=== PATIENT | male | born 1940 | race Caucasian/White ===

== ENCOUNTER 2018-03-28 01:01 | Observation (INO) | payer MEDICARE ==
[2018-03-28] VITALS (8 sets, daily range): BP systolic 97–136; BP diastolic 54–68; PULSE 52–68; RESP 16–18; TEMP 97.7–98.9; O2SAT 97–100
[~2018-03-28 01:01] MED LIST: ACET300T49 PO; APIX2.5T PO; AUGM500T7 PO; CARD180T PO; CHOL100025 CHEW; DIFFCHW PO; DIFL200T PO; DIGO0.25 PO; EFFE150C PO; FOLI1TAB4 PO; GABA300C5 PO; GLIP10TA6 PO; LEVO.05 PO; LORA-361 PO; MELA5 PO; METF500T PO; OMEP20TA93 PO; SPIRCAP INH
[2018-03-28] MEDS ORDERED: SODIUM CHLOR 0.9% 1000 ML INJ 1,000 ML IV ONE (01:09)
[2018-03-28] MEDS ORDERED: IODIXANOL 320 MG/ML 10 ML VIAL (for Rad CT) IVCONTRAST ONE (01:13)
[2018-03-28 01:19] LABS: AUTOMATED NEUTROPHIL # 5.6 TH/MM3 (1.8-7.7); BASOPHIL # 0.1 TH/MM3 (0-0.2); BASOPHIL % 0.8 % (0.0-2.0); EOSINOPHIL # 0.1 TH/MM3 (0-0.4); EOSINOPHIL % 1.2 % (0.0-4.0); HEMATOCRIT 39.5 % (39.0-51.0); HEMOGLOBIN 13.1 GM/DL (13.0-17.0); LYMPH % 41.2 % (9.0-44.0); LYMPHOCYTE # 4.7 TH/MM3 (1.0-4.8); MEAN CORPUSCULAR HEMOGLOBIN 31.4 PG (27.0-34.0); MEAN CORPUSCULAR HGB CONC 33.1 % (32.0-36.0); MONO % 7.1 % (0.0-8.0); MONOCYTE # 0.8 TH/MM3 (0-0.9); NEUT % 49.7 % (16.0-70.0); PLATELET COUNT 293 TH/MM3 (150-450); RED BLOOD COUNT 4.16 MIL/MM3 (4.50-5.90); RED CELL DISTRIBUTION WIDTH 14.3 % (11.6-17.2); WHITE BLOOD COUNT 11.3 TH/MM3 (4.0-11.0)
--- NOTE | 2018-03-28 01:28 | RADRPT ---
EXAM DATE: 03/28/2018 1:20 AM EDT AGE/SEX: 78 years / Male INDICATIONS: Stroke Alert. Left sided weakness with slurred speech. CLINICAL DATA: This is the patient's initial encounter. Patient reports that signs and symptoms have been present for 1 day and indicates a pain score of Nonresponsive. MEDICAL/SURGICAL HISTORY: Cardiovascular disease. Hypertension. Diabetes mellitus type II. COPD Renal stones Appendectomy. Craniotomy. RADIATION DOSE: 66.34 CTDI (mGy) COMPARISON: No prior exams available for comparison. Report was called by Dr. Mercado to Dr. Caceres at [phone].] TECHNIQUE: CT of the head without contrast. Using automated exposure control and adjustment of the mA and/or kV according to patient size, radiation dose was kept as low as reasonably achievable to ob tain optimal diagnostic quality images. FINDINGS: Cerebrum: The ventricles, sulci, and cisterns are diffusely prominent indicating diffuse atrophy. Ri ght frontal encephalomalacia noted. Right frontal subdural hygroma is noted with minimal mass effect on the right frontal lobe. No acute intracranial hemorrhage. No evidence of acute infarction or intra cranial mass lesion. Right-sided aneurysm clip is noted. Posterior Fossa: The cerebellum and brainstem are intact. The 4th ventricle is midline. The cerebe llopontine angle is unremarkable. Extracranial: The visualized portion of the orbits is intact. Skull: The calvaria is intact. No evidence of skull fracture. CONCLUSION: 1. No acute intracranial findings. 2. Right-sided [place] aneurysm clip. 3. Diffuse atrophy. 4. Right frontal lobe encephalomalacia. 5. Right-sided frontal subdural hygroma with minimal mass effect. Electronically signed by: Liam Mercado MD 03/28/2018 1:27 AM EDT
[2018-03-28 01:35] LABS: TROPONIN I LESS THAN 0.02 NG/ML (0.02-0.05)
--- NOTE | 2018-03-28 01:58 | RADRPT ---
EXAM DATE: 03/28/2018 1:42 AM EDT AGE/SEX: 78 years / Male INDICATIONS: Stroke alert; left side weakness and slurred speech. CLINICAL DATA: This is the patient's initial encounter. Patient reports that signs and symptoms have been present for 1 day and indicates a pain score of 0/10. MEDICAL/SURGICAL HISTORY: Non-responsive. Craniotomy. RADIATION DOSE: 10.29 CTDI (mGy) ; Combined studies COMPARISON: No prior exams available for comparison. TECHNIQUE: Volumetric scanning was performed using a multi-row detector CT scanner during bolus infu chelly of 75 ml Visipaque 320 (iodixanol) nonionic water-soluble contrast as a cumulative dose for mul tiple exams. The data was post processed with a variety of visualization algorithms including full volume maximum intensity projection, multi-planar sliding thin slab reformation, curved planar reform ation, and surface rendering techniques. Using automated exposure control and adjustment of the mA a nd/or kV according to patient size, radiation dose was kept as low as reasonably achievable to obtain optimal diagnostic quality images. FINDINGS: There is occlusion of the right internal carotid artery at its origin. Anterior to indicating artery is patent. The anterior cerebral arteries, middle cerebral arteries, posterior cerebral arteries are symmetric without evidence of occlusion or high-grade stenosis. Aneurysm clip is noted at the right s padmini of the anterior [place] of [place]. There is a small 3 mm fusiform aneurysm at the left MCA trifurc ation. CONCLUSION: 1. Age-indeterminate occlusion of the right ICA at its origin. 2. Filling of the anterior circulation on the right via collaterals. No evidence of high-grade intra cranial stenosis or occlusion. 3. 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 4. Right-sided anterior aneurysm clip. Electronically signed by: Liam Mercado MD 03/28/2018 1:51 AM EDT
[2018-03-28] MEDS ORDERED: ASPIRIN 300 MG SUPP RECTAL ONE (02:00)
--- NOTE | 2018-03-28 02:02 | PD ---
HPI Chief Complaint: Stroke Alert Time Seen by Provider: 01:09 Travel History International Travel<30 days: No Contact w/Intl Traveler<30days: No Traveled to known affect area: No History of Present Illness HPI Patient is a 78-year-old male with history of atrial fibrillation, CHF, dementia , COPD, hypothyroidism, diabetes, chronic pain, depression, emphysema, PE, UTI, aneurysms, TIA, neuropathy, CVA who presents to the emergency room from [facility] under a stroke alert. As per EVAC, patient was last seen normal around 12:05 AM tonight, reports that nursing went to check up on patient and around 12:15 AM, patient was unresponsive. When EMS arrived on scene, patient had slurring of speech. EVAC did call for a stroke alert initiated in the field. EVAC reports that patient did have improvement of speech on route to the ER. Blood sugar was 129. Patient is on Eliquis for his Atrial fibrillation PFSH Past Medical History Atrial Fibrillation: Yes Heart Rhythm Problems: Yes (A Fib) Cancer: No Cardiovascular Problems: Yes (A Fib) COPD: Yes Cerebrovascular Accident: No Diabetes: Yes Patient Takes Glucophage: Yes Diminished Hearing: Yes (VERY HARD OF HEARING) Endocrine: Yes Genitourinary: Yes (KIDNEY STONE, UTI) Hypertension: Yes Kidney Stones: Yes Musculoskeletal: Yes Neurologic: Yes (Aneurism) Psychiatric: No Reproductive: Yes (COGNITIVE COMMUNICATION DEFICIT) Respiratory: Yes Seizures: No Thyroid Disease: Yes Past Surgical History Abdominal Surgery: Yes Cardiac Surgery: No Neurologic Surgery: Yes Other Surgery: Yes Social History Alcohol Use: No Tobacco Use: No (Former smoker) Substance Use: No Allergies-Medications (Allergen,Severity, Reaction): Coded Allergies: hydromorphone (Unverified Allergy, Unknown, 03/28/18) *MDRO Multi-Drug Resistant Organism (Verified Adverse Reaction, Unknown, ) 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 Reported Meds & Prescriptions Reported Meds & Active Scripts Active Augmentin (Amoxicillin-Clavulanate) 500-125 mg Tab 500 Mg PO Q8H Diflucan (Fluconazole) 200 Mg Tab 400 Mg PO DAILY 14 Days Reported Metformin (Metformin HCl) 500 Mg Tab 2,000 Mg PO HS With meals Vitamin D3 (Cholecalciferol) 1,000 Unit Chew 1,000 Units CHEW TID Digoxin 0.25 Mg Tab 0.25 Mg PO DAILY Cardizem LA (Diltiazem ER 24 HR) 180 Mg Adele 180 Mg PO DAILY Glipizide 10 Mg Tab 10 Mg PO BIDAC Take 30 minutes before a meal Gabapentin 300 Mg Cap 300 Mg PO HS Omeprazole 20 Mg Tab 20 Mg PO DAILY Folate (Folic Acid) 1 Mg Tab 1 Mg PO DAILY Melatonin 5 Mg Tab 1 Tab PO HS Acetaminophen-Codeine 300-15 mg Tab 1-2 Tab PO Q8HR PRN Claritin (Loratadine) 10 Mg Tab 20 Mg PO DAILY Gabapentin 300 Mg Cap 600 Mg PO DAILY Diff-Stat (Probiotic Product) 1 Cap Cap 1 Cap PO TID Eliquis (Apixaban) 2.5 Mg Tab 2.5 Mg PO BID Synthroid (Levothyroxine Sodium) 50 Mcg Tab 50 Mcg PO DAILY Spiriva Handihaler (Tiotropium Inh) 18 Mcg Cap 1 Cap INH DAILY 1 capsule = 18 mcg Effexor XR 24 HR (Venlafaxine HCl) 150 Mg Cap 150 Mg PO BID Review of Systems General / Constitutional: No: Fever Eyes: No: Visual changes HENT: No: Headaches Cardiovascular: No: Chest Pain or Discomfort Respiratory: No: Shortness of Breath Gastrointestinal: No: Abdominal Pain Genitourinary: No: Dysuria Musculoskeletal: No: Pain Skin: No Rash Neurologic: Positive: Slurred Speech, No: Weakness Psychiatric: No: Depression Endocrine: No: Polydipsia Hematologic/Lymphatic: No: Easy Bruising Physical Exam Narrative GENERAL: moderate distress SKIN: Focused skin assessment warm/dry. HEAD: Atraumatic. Normocephalic. EYES: Pupils equal and round. No scleral icterus. No injection or drainage. ENT: No nasal bleeding or discharge. Mucous membranes pink and moist. NECK: Trachea midline. No JVD. CARDIOVASCULAR: Regular rate and rhythm. No murmur appreciated. RESPIRATORY: No accessory muscle use. Clear to auscultation. Breath sounds equal bilaterally. GASTROINTESTINAL: Abdomen soft, non-tender, nondistended. Hepatic and splenic margins not palpable. MUSCULOSKELETAL: No obvious deformities. No clubbing. No cyanosis. No edema. NEUROLOGICAL: Awake and alert. No obvious cranial nerve deficits. Motor grossly within normal limits. Patient with slurring of speech, NIH scale 1. Data Data Last Documented VS Vital Signs Date Time Temp Pulse Resp B/P (MAP) Pulse Ox O2 Delivery O2 Flow Rate FiO2 6/12/18 02:07 67 18 116/56 (76) 97 Room Air 03/28/18 01:01 98.0 Orders Orders Diet Npo (03/28/18 Breakfast) Activity Bed Rest (03/28/18 ) Electrocardiogram (03/28/18 ) I-Stat Profile (03/28/18 01:09) Prothrombin Time / Inr (Pt) (03/28/18 01:09) Act Partial Throm Time (Ptt) (03/28/18 01:09) Complete Blood Count With Diff (03/28/18 01:09) Fibrinogen (03/28/18 01:09) Creatine Kinase (Cpk) (03/28/18 01:09) Troponin I (03/28/18 01:09) Ua Includes Microscopic (03/28/18 01:09) Drug Screen, Random Urine (03/28/18 01:09) Type And Screen (03/28/18 01:09) Ct Brain W/O Iv Contrast(Rout) (03/28/18 ) Chest, Single Ap (03/28/18 ) Cta Brain W Iv Contrast W 3d (03/28/18 01:09) Cta Neck W Iv Contrast W 3d (03/28/18 01:09) Blood Glucose (03/28/18 01:09) Ecg Monitoring (03/28/18 01:09) Neuro Checks Q2HX12,Q4H (03/28/18 01:09) Nursing Bedside Swallow Assess .ONCE (03/28/18 01:09) Iv Access Insert/Monitor (03/28/18 01:09) NPO (03/28/18 01:09) Oximetry (03/28/18 01:09) Sodium Chlor 0.9% 1000 Ml Inj (Ns 1000 M (03/28/18 01:09) Aspirin Supp (Aspirin Supp) (03/28/18 02:00) Admit Order (Ed Use Only) (03/28/18 02:19) Labs Laboratory Tests Test 03/28/18 01:01 White Blood Count 11.3 TH/MM3 Red Blood Count 4.16 MIL/MM3 Hemoglobin 13.1 GM/DL Bedside Hemoglobin 12.9 G/DL Hematocrit 39.5 % Bedside Hematocrit 38.0 % Mean Corpuscular Volume 95.0 FL Mean Corpuscular Hemoglobin 31.4 PG Mean Corpuscular Hemoglobin Concent 33.1 % Red Cell Distribution Width 14.3 % Platelet Count 293 TH/MM3 Mean Platelet Volume 8.0 FL Neutrophils (%) (Auto) 49.7 % Lymphocytes (%) (Auto) 41.2 % Monocytes (%) (Auto) 7.1 % Eosinophils (%) (Auto) 1.2 % Basophils (%) (Auto) 0.8 % Neutrophils # (Auto) 5.6 TH/MM3 Lymphocytes # (Auto) 4.7 TH/MM3 Monocytes # (Auto) 0.8 TH/MM3 Eosinophils # (Auto) 0.1 TH/MM3 Basophils # (Auto) 0.1 TH/MM3 CBC Comment DIFF FINAL Differential Comment Prothrombin Time 10.0 SEC Prothromb Time International Ratio 1.0 RATIO Activated Partial Thromboplast Time 25.2 SEC Fibrinogen 432 mg/dL Bedside Sodium 135 MMOL/L Bedside Potassium 3.8 MMOL/L Bedside Chloride 95 MMOL/L Bedside Blood Urea Nitrogen 13 MG/DL Bedside Creatinine 1.2 MG/DL Bedside Glucose 129 MG/DL Total Creatine Kinase 18 U/L Troponin I LESS THAN 0.02 NG/ML [facility] Medical Screen Exam Complete: Yes Emergency Medical Condition: Yes Medical Record Reviewed: Yes EKG Prior to Arrival: Yes Differential Diagnosis CVA, TIA, intracranial hemorrhage Narrative Course During the course of the patients emergency department visit, the patients history, examination, and differential diagnosis were reviewed with the patient. The patient was placed on a design assistant with oximetry and frequent blood pressure monitoring. The patient had an IV access obtained and blood work sent for analysis. BS 129 Stroke alert was called overhead. NIH scale was 1 given his speech deficits. The patients laboratory studies were reviewed and remarkable for Laboratory Tests Test 03/28/18 01:01 White Blood Count 11.3 TH/MM3 (4.0-11.0) Red Blood Count 4.16 MIL/MM3 (4.50-5.90) Hemoglobin 13.1 GM/DL (13.0-17.0) Bedside Hemoglobin 12.9 G/DL (13.0-17.0) Hematocrit 39.5 % (39.0-51.0) Bedside Hematocrit 38.0 % (39.0-51.0) Mean Corpuscular Volume 95.0 FL (80.0-100.0) Mean Corpuscular Hemoglobin 31.4 PG (27.0-34.0) Mean Corpuscular Hemoglobin Concent 33.1 % (32.0-36.0) Red Cell Distribution Width 14.3 % (11.6-17.2) Platelet Count 293 TH/MM3 (150-450) Mean Platelet Volume 8.0 FL (7.0-11.0) Neutrophils (%) (Auto) 49.7 % (16.0-70.0) Lymphocytes (%) (Auto) 41.2 % (9.0-44.0) Monocytes (%) (Auto) 7.1 % (0.0-8.0) Eosinophils (%) (Auto) 1.2 % (0.0-4.0) Basophils (%) (Auto) 0.8 % (0.0-2.0) Neutrophils # (Auto) 5.6 TH/MM3 (1.8-7.7) Lymphocytes # (Auto) 4.7 TH/MM3 (1.0-4.8) Monocytes # (Auto) 0.8 TH/MM3 (0-0.9) Eosinophils # (Auto) 0.1 TH/MM3 (0-0.4) Basophils # (Auto) 0.1 TH/MM3 (0-0.2) CBC Comment DIFF FINAL Differential Comment Prothrombin Time 10.0 SEC (9.8-11.6) Prothromb Time International Ratio 1.0 RATIO Activated Partial Thromboplast Time 25.2 SEC (24.3-30.1) Fibrinogen 432 mg/dL (227-377) Bedside Sodium 135 MMOL/L (137-144) Bedside Potassium 3.8 MMOL/L (3.6-5.0) Bedside Chloride 95 MMOL/L (102-111) Bedside Blood Urea Nitrogen 13 MG/DL (5-21) Bedside Creatinine 1.2 MG/DL (0.6-1.3) Bedside Glucose 129 MG/DL (68-110) Total Creatine Kinase 18 U/L (39-308) Troponin I LESS THAN 0.02 NG/ML Radiology studies were reviewed and remarkable for Last Impressions Head CTA 03/28/18 0108 Signed Impressions: CONCLUSION: 1. Age-indeterminate occlusion of the right ICA at its origin. 2. Filling of the anterior circulation on the right via collaterals. No eviden ce of high-grade intracranial stenosis or occlusion. 3. 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 4. Right-sided anterior aneurysm clip. Head CT 03/28/18 0000 Signed Impressions: CONCLUSION: 1. No acute intracranial findings. 2. Right-sided [place] of [place] aneurysm clip. 3. Diffuse atrophy. 4. Right frontal lobe encephalomalacia. 5. Right-sided frontal subdural hygroma with minimal mass effect. Chest X-Ray 03/28/18 0000 Signed Impressions: CONCLUSION: Mild patchy left lung base opacity indicating atelectasis versus mild consolida tion. Patient with no intracranial hemorrhage, case reviewed Dr. Caceres, patient is not a candidate for TPA given the fact that he is on Eliquis. Patient was reevaluated with his at bedside, patient with return of speech , patient currently back at baseline, NIH scale is 0 at this time. Discussed with patient and that he most likely suffered a TIA. Critical Care Narrative Aggregate critical care time was 30 minutes. Time to perform other separately billable procedures was not included in the critical care time. My time did not include minutes spent treating any other patients simultaneously or on activities that did not directly contribute to the patient's treatment. The services I provided to this patient were to treat and/or prevent clinically significant deterioration that could result in: , decompensation, deterioration I provided critical care services requiring my management, as noted below: Chart data review, documentation time, medication orders and management, vital sign assessments/reviewing monitor data, ordering and reviewing lab tests, ordering and interpreting/reviewing x-rays and diagnostic studies, care of the patient and discussion of the patient with the admitting physicians. Stroke Alert NIHSS NIH Stroke Scale Result: 1 NIHSS Time Completed: 01:00 Physician Communication Physician Communication Case reviewed with Dr. Garcia who accepts pt to service Diagnosis Diagnosis: Primary Impression: TIA (transient ischemic attack) Qualified Codes: G45.9 - Transient cerebral ischemic attack, unspecified Admitting Physician Requests: Jacki Cabello DO Mar 28, 2018 02:02
--- NOTE | 2018-03-28 02:02 | RADRPT ---
EXAM DATE: 03/28/2018 1:54 AM EDT AGE/SEX: 78 years / Male INDICATIONS: Stroke alert. CLINICAL DATA: This is the patient's initial encounter. Patient reports that signs and symptoms have been present for 1 day and indicates a pain score of 0/10. MEDICAL/SURGICAL HISTORY: None. None. COMPARISON: [facility], CHEST SINGLE AP, 08/22/2016. . FINDINGS: Single AP view of the chest. Lung volumes are low. Mild cardiac silhouette enlargement. Lungs are clarence ar. Mild patchy opacity left lung base. No evidence of pleural effusion or pneumothorax. CONCLUSION: Mild patchy left lung base opacity indicating atelectasis versus mild consolidation. Electronically signed by: Liam Mercado MD 03/28/2018 2:01 AM EDT
--- NOTE | 2018-03-28 02:23 | RADRPT ---
EXAM DATE: 03/28/2018 2:02 AM EDT AGE/SEX: 78 years / Male INDICATIONS: Stroke alert; left side weakness and slurred speech. CLINICAL DATA: This is the patient's initial encounter. Patient reports that signs and symptoms have been present for 1 day and indicates a pain score of 0/10. MEDICAL/SURGICAL HISTORY: Non-responsive. Craniotomy. RADIATION DOSE: 10.97 CTDI (mGy) COMPARISON: No prior exams available for comparison. TECHNIQUE: Volumetric scanning was performed using a multirow detector CT scanner during bolus infus ion of 75 ml Visipaque 320 (iodixanol) nonionic water-soluble contrast as a cumulative dose for mult iple exams. The data was postprocessed with a variety of visualization algorithms including full-vo lume maximum intensity projection, multiplanar sliding thin-slab reformation, curved-planar reformati on, and surface-rendering techniques. Using automated exposure control and adjustment of the mA and/ or kV according to patient size, radiation dose was kept as low as reasonably achievable to obtain op timal diagnostic quality images. Elevated flow velocities and ICA/CCA ratios have been found to correlate with increased degrees of ve ssel stenosis, calculated as percentage of diameter relative to a normal segment of distal ICA/CCA. FINDINGS: There is occlusion of the right internal carotid artery at its origin. This finding is age-indetermin ate. External carotid arteries patent on the right. Three-vessel origins at the aortic arch. There is plaque at the origin of the left common carotid art abiodun with moderate grade stenosis of 50-60%. Mild calcified and noncalcified plaque of the proximal left internal carotid artery. No evidence of s ignificant stenosis. Left external carotid arteries patent. Bilateral vertebral arteries are symmetric and widely patent. CONCLUSION: 1. Age-indeterminate right internal carotid artery occlusion at its origin. 2. Plaque at the origin of the left common carotid artery with moderate grade stenosis. Electronically signed by: Liam Mercado MD 03/28/2018 2:21 AM EDT
[2018-03-28] MEDS ORDERED: HUMALOG SQ (02:34)
[2018-03-28] MEDS ORDERED: [UNRECOGNIZED DRUG - CODE] (02:34)
[2018-03-28] MEDS ORDERED: REFRDRO EACH EYE (02:34)
[2018-03-28] MEDS ORDERED: ZOFR4TAB3 SL (02:34)
[2018-03-28] MEDS ORDERED: CLAR10CA3 PO (02:34)
[2018-03-28] MEDS ORDERED: ASPI-516 CHEW (02:34)
[2018-03-28] MEDS ORDERED: VENL25TA PO (02:34)
[2018-03-28] MEDS ORDERED: TRAZ50TA12 PO (02:34)
[2018-03-28] MEDS ORDERED: FOLI800T PO (02:34)
[2018-03-28] MEDS ORDERED: MEMA1TAB2 PO (02:34)
[2018-03-28] MEDS ORDERED: GABA100C4 PO (02:34)
[2018-03-28] MEDS ORDERED: TUMS500C CHEW (02:34)
[2018-03-28] MEDS ORDERED: METF1000 PO (02:34)
[2018-03-28] MEDS ORDERED: IPRASOL INH (02:34)
[2018-03-28] MEDS ORDERED: RIVA1DIS (02:34)
[2018-03-28] MEDS ORDERED: APIX5TAB PO (02:34)
[2018-03-28] MEDS ORDERED: FURO20TA PO (02:34)
[2018-03-28] MEDS ORDERED: SODIUM CHLORIDE 0.9% FLUSH 10 ML FLUSH IV FLUSH PRN (03:00)
[2018-03-28] MEDS ORDERED: DEXTROSE 50% IN WATER 50 ML VIAL(D50) IV PUSH PRN (03:00)
[2018-03-28] MEDS ORDERED: GLUCAGON 1 MG/ML VIAL OTHER PRN (03:00)
--- NOTE | 2018-03-28 03:25 | HHI.HP ---
[facility] Service [facility] Physician Cipriano Marte MD Admission Diagnosis TIA Diagnoses: Travel History International Travel<30 Days: No Contact w/Intl Traveler <30 Da: No Traveled to Known Affected Are: No History of Present Illness 78-year-old male with a past medical history significant for atrial fibrillation anticoagulated on Eliquis, CHF, dementia, COPD, hypothyroidism, diabetes mellitus, depression, history of pulmonary embolism, GERD and history of CVA presents the emergency department for the evaluation of strokelike symptoms. Per emergency room documentation the patient was last seen normal around 12:05 AM. When nursing went to check on the patient around 12:15 AM the patient was unresponsive. The patient reports that he woke up in severe pain and unable to move with full body paralysis. At the time of our interview, patient's symptoms have subsided. His is bedside he reports that the patient was recently diagnosed with a "stroke in his right eye" causing partial blindness that occurred last week. The patient denies any chest pain or shortness of breath. No abdominal pain. No nausea/vomiting/diarrhea. No fevers/chills. Review of Systems Except as stated in HPI: all other systems reviewed are Neg Past Family Social History Past Medical History atrial fibrillation anticoagulated on Eliquis, CHF, dementia, COPD, hypothyroidism, diabetes mellitus, depression, history of pulmonary embolism, GERD and history of CVA Past Surgical History Back surgery Right rotator cuff repair 2 Knee arthroscopically Appendectomy Brain aneurysm clipping Bilateral cataract surgery Reported Medications Reported Meds & Active Scripts Active Reported Zofran Odt (Ondansetron Odt) 4 Mg Tab 4 Mg SL Q6HR PRN Tums (Calcium Carbonate (Antacid)) 500 Mg Chew 500 Mg CHEW PRN Trazodone (Trazodone HCl) 50 Mg Tab 50 Mg PO HS Duoneb (Ipratropium-Albuterol Neb) 0.5-2.5 Mg/3 Ml Neb 1 Nebule INH Q8HR NEB Hemorrhoidal Ointment (Phenyleph/Shark [place].oil/Mo/Pet) 57 Gm Oint...g. Refresh Opth Drops (Polyvinyl Alcohol-Povidone Opth Drops) 1.4-0.6% Drops 1-2 Drop EACH EYE TID PRN Gabapentin 100 Mg Cap 400 Mg PO TID Effexor (Venlafaxine HCl) 25 Mg Tab 25 Mg PO Q12H Metformin (Metformin HCl) 1,000 Mg Tab 1,000 Mg PO BIDPC Eliquis (Apixaban) 5 Mg Tab 5 Mg PO BID Rivastigmine 4.6 Mg/24 Hour Patch.td24 Memantine 10 Mg Tab 10 Mg PO DAILY Claritin (Loratadine) 10 Mg Cap 10 Mg PO DAILY Humalog Inj (Insulin Human Lispro) 1,000 Unit/10 Ml Vial 2-12 Units SQ ACHS Max dose at bedtime:( )units; sugars < 70,(0)units; sugars 150-199,(2)units; sugars 200-249,(4)units; sugars 250-299,(7)units; sugars 300-349,(10)units; sugars more than 349,(12)units. Furosemide 20 Mg Tab 20 Mg PO DAILY Folic Acid 0.8 Mg Tab 1 Mg PO DAILY Aspirin 81 Mg Chew 81 Mg CHEW DAILY Vitamin D3 (Cholecalciferol) 1,000 Unit Chew 1,000 Units CHEW TID Digoxin 0.25 Mg Tab 0.25 Mg PO DAILY Cardizem LA (Diltiazem ER 24 HR) 180 Mg Adele 180 Mg PO DAILY Glipizide 10 Mg Tab 10 Mg PO BIDAC Take 30 minutes before a meal Omeprazole 20 Mg Tab 20 Mg PO DAILY Acetaminophen-Codeine 300-15 mg Tab 1-2 Tab PO Q8HR PRN Synthroid (Levothyroxine Sodium) 50 Mcg Tab 50 Mcg PO DAILY Spiriva Handihaler (Tiotropium Inh) 18 Mcg Cap 1 Cap INH DAILY 1 capsule = 18 mcg Allergies: Coded Allergies: hydromorphone (Unverified Allergy, Unknown, 03/28/18) *MDRO Multi-Drug Resistant Organism (Verified Adverse Reaction, Unknown, ) 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 Family History Negative for CAD/DM Social History Negative for alcohol, tobacco and illicit drugs Physical Exam Vital Signs Vital Signs Date Time Temp Pulse Resp B/P (MAP) Pulse Ox O2 Delivery O2 Flow Rate FiO2 03/28/18 02:07 67 18 116/56 (76) 97 Room Air 03/28/18 01:01 98.0 67 16 136/67 (90) 97 Physical Exam GENERAL: male lying in bed SKIN: No rashes, ecchymoses or lesions. Cool and dry. HEAD: Atraumatic. Normocephalic. No temporal or scalp tenderness. EYES: Pupils equal round and reactive. Extraocular motions intact. No scleral icterus. No injection or drainage. ENT: Nose without bleeding, purulent drainage or septal hematoma. Throat without erythema, tonsillar hypertrophy or exudate. Uvula midline. Airway patent. NECK: Trachea midline. No JVD or lymphadenopathy. Supple, nontender, no meningeal signs. CARDIOVASCULAR: Regular rate and rhythm without murmurs, gallops, or rubs. RESPIRATORY: Clear to auscultation. Breath sounds equal bilaterally. No wheezes , rales, or rhonchi. GASTROINTESTINAL: Abdomen soft, non-tender, nondistended. No hepato-splenomegaly , or palpable masses. No guarding. MUSCULOSKELETAL: Extremities without clubbing, cyanosis, or edema. No joint tenderness, effusion, or edema noted. No calf tenderness. NEUROLOGICAL: Awake and alert. Cranial nerves II through XII intact. Motor within normal limits. Bilateral foot numbness which is chronic for the patient. Five out of 5 muscle strength in all muscle groups. Normal speech. Laboratory Laboratory Tests Test 03/28/18 01:01 White Blood Count 11.3 Red Blood Count 4.16 Hemoglobin 13.1 Bedside Hemoglobin 12.9 Hematocrit 39.5 Bedside Hematocrit 38.0 Mean Corpuscular Volume 95.0 Mean Corpuscular Hemoglobin 31.4 Mean Corpuscular Hemoglobin Concent 33.1 Red Cell Distribution Width 14.3 Platelet Count 293 Mean Platelet Volume 8.0 Neutrophils (%) (Auto) 49.7 Lymphocytes (%) (Auto) 41.2 Monocytes (%) (Auto) 7.1 Eosinophils (%) (Auto) 1.2 Basophils (%) (Auto) 0.8 Neutrophils # (Auto) 5.6 Lymphocytes # (Auto) 4.7 Monocytes # (Auto) 0.8 Eosinophils # (Auto) 0.1 Basophils # (Auto) 0.1 CBC Comment DIFF FINAL Differential Comment Prothrombin Time 10.0 Prothromb Time International Ratio 1.0 Activated Partial Thromboplast Time 25.2 Fibrinogen 432 Bedside Sodium 135 Bedside Potassium 3.8 Bedside Chloride 95 Bedside Blood Urea Nitrogen 13 Bedside Creatinine 1.2 Bedside Glucose 129 Total Creatine Kinase 18 Troponin I LESS THAN 0.02 Result Diagram: 03/28/18100 Caprini VTE Risk Assessment Caprini VTE Risk Assessment: Mod/High Risk (score >= 2) Caprini Risk Assessment Model Point Value = 1 Point Value = 2 Point Value = 3 Point Value = 5 Age 41-60 Minor surgery BMI > 25 kg/m2 Swollen legs Varicose veins or History of unexplained or recurrent spontaneous Oral contraceptives or hormone replacement Sepsis (< 1 month) Serious lung disease, including pneumonia (< 1 month) Abnormal pulmonary function Acute myocardial infarction Congestive heart failure (< 1 month) History of inflammatory bowel disease Medical patient at bed rest Age 61-74 Arthroscopic surgery Major open surgery (> 45 min) Laparoscopic surgery (> 45 min) Malignancy Confined to bed (> 72 hours) Immobilizing plaster cast Central venous access Age >= 75 History of VTE Family history of VTE Factor V Leiden Prothrombin [id number] Lupus anticoagulant Anticardiolipin antibodies Elevated serum homocysteine Heparin-induced thrombocytopenia Other congenital or acquired thrombophilia Stroke (< 1 month) Elective arthroplasty Hip, pelvis, or leg fracture Acute spinal cord injury (< 1 month) Prophylaxis Regimen Total Risk Factor Score Risk Level Prophylaxis Regimen 0-1 Low Early ambulation 2 Moderate Order ONE of the following: *Sequential Compression Device (SCD) *Heparin 5000 units SQ BID 3-4 Higher Order ONE of the following medications: *Heparin 5000 units SQ TID *Enoxaparin/Lovenox 40 mg SQ daily (WT < 150 kg, CrCl > 30 mL/min) *Enoxaparin/Lovenox 30 mg SQ daily (WT < 150 kg, CrCl > 10-29 mL/min) *Enoxaparin/Lovenox 30 mg SQ BID (WT < 150 kg, CrCl > 30 mL/min) AND/OR *Sequential Compression Device (SCD) 5 or more Highest Order ONE of the following medications: *Heparin 5000 units SQ TID (Preferred with Epidurals) *Enoxaparin/Lovenox 40 mg SQ daily (WT < 150 kg, CrCl > 30 mL/min) *Enoxaparin/Lovenox 30 mg SQ daily (WT < 150 kg, CrCl > 10-29 mL/min) *Enoxaparin/Lovenox 30 mg SQ BID (WT < 150 kg, CrCl > 30 mL/min) AND *Sequential Compression Device (SCD) Assessment and Plan Assessment and Plan Assessment/plan: 1. TIA Patient presented with strokelike symptoms under a stroke code Neurology consulted, appreciate recommendations. Not a TPA candidate at this time. Continue Eliquis Unable to perform MRI/MRA as patient has aneurysm clips in his brain Carotid ultrasound, echo pending Neurology consulted, appreciate recommendations 2. Diabetes mellitus Holding home metformin Sliding-scale insulin Monitor blood glucose 3. Atrial fibrillation Continue home Eliquis Continue home medications 4. CHF/COPD/hypothyroidism Continue home medications 5. Depression/dementia Continue home medications FEN N.p.o. NS at 70 cc/hour Electrolytes: Monitor and replete as needed Jacki Hankins MD Mar 28, 2018 03:25
[2018-03-28] MEDS: LEVOTHYROXINE SODIUM 50 MCG TAB PO SCH (05:57)
[2018-03-28] MEDS: INSULIN ASPART SUPPLEMENTAL SCALE SQ SCH ×4 (08:00→22:57)
[2018-03-28] MEDS: DIGOXIN 0.25 MG TAB PO SCH (09:45)
[2018-03-28] MEDS: MEMANTINE HCL 10 MG TAB PO SCH (09:48)
[2018-03-28] MEDS: DILTIAZEM-CD 180 MG CAP ER PO SCH (09:48)
[2018-03-28] MEDS: SODIUM CHLORIDE 0.9% FLUSH 10 ML FLUSH IV FLUSH SCH ×2 (09:49→22:57)
[2018-03-28] MEDS: FUROSEMIDE 20 MG TAB PO SCH (09:49)
--- NOTE | 2018-03-28 10:18 | RADRPT ---
EXAM DATE: 03/28/2018 10:06 AM EDT AGE/SEX: 78 years / Male INDICATIONS: Cerebrovascular accident. CLINICAL DATA: This is the patient's initial encounter. Patient reports that signs and symptoms have been present for 2 days and indicates a pain score of 0/10. MEDICAL/SURGICAL HISTORY: Osteoarthritis. Chronic obstructive pulmonary disease. Renal calcul i. Hypothyroidism. Peripheral neuropathy. Aneurysm. AFib. UTI. HTN. Diabetes. MRSA. Tonsillectomy. Appendectomy. Rectum surgery. Cystoscopy with stent placement. Right knee surgery. Rotator cuff rep air x2. Spinal fusion L5. COMPARISON: No prior exams available for comparison. VELOCITY PARAMETERS: ICA/CCA Ratio: Right UTO , Left 1.2 ICA: Right UTO cm/sec, Left 90 cm/sec CCA: Right 49 cm/sec, Left 77 cm/sec ECA: Right 120 cm/sec, Left 101 cm/sec Vertebral: Right 33 cm/sec antegrade, Left 41 cm/sec antegrade FINDINGS: Right Carotid: Occluded right internal carotid artery. Left Carotid: Minimal plaque is identified in the left carotid bifurcation. There is no evidence of hemodynamically significant stenosis. There is no spectral broadening. Other: Antegrade flow is identified in both vertebral arteries. CONCLUSION: 1. Right Internal Carotid Artery: Findings indicate undetectable blood flow suggesting total occlusi on. 2. Left Internal Carotid Artery: Minimal plaque without evidence of hemodynamically significant sten osis. 3. Antegrade flow both vertebral arteries. Electronically signed by: Branden Brambila MD 03/28/2018 10:17 AM EDT
[2018-03-28] MEDS: APIXABAN 5 MG TABLET PO SCH ×2 (10:58→22:57)
[2018-03-28] MEDS: TIOTROPIUM BROMIDE 18 MCG INH INH SCH (10:59)
[2018-03-28] MEDS: ASPIRIN 325 MG TAB PO SCH (10:59)
--- NOTE | 2018-03-28 14:17 | EKG ---
Date Performed: 03/28/2018 Time Performed: 02:20:19 PTAGE: 78 years EKG: ATRIAL FIBRILLATION NONSPECIFIC T-WAVE ABNORMALITY ABNORMAL RHYTHM ECG Compared to prior el ectrocardiogram, rate has decreased . PREVIOUS TRACING : 08/22/2016 13.06 DOCTOR: Nik Godinez Interpretating Date/Time 03/28/2018 14:16:31
--- NOTE | 2018-03-28 15:43 | PD.CONS ---
History of Present Illness Service Neurology Consult Requested By Medical, TIA, confusion Primary Care Physician Cipriano Marte MD History of Present Illness 78-year-old male with multiple comorbidities including atrial fibrillation, neuropathy, dementia brought in from correction for a vision loss which is been ongoing for the past several days or lethargy. His history of previous aneurysm with clip done several years ago. Carotid ultrasound CTA performed which demonstrated a right ICA occlusion and flow going from the anterior circulation. He is on chronic anticoagulation for his A. fib aspirin was added in the hospital. states that he did have dementia at baseline as well as lower extremity neuropathy quite sedentary. PFSH Past Medical History Atrial Fibrillation: Yes Heart Rhythm Problems: Yes (A Fib) Cancer: No Cardiovascular Problems: Yes (A Fib) COPD: Yes Cerebrovascular Accident: No Diabetes: Yes Patient Takes Glucophage: Yes Diminished Hearing: Yes (VERY HARD OF HEARING) Endocrine: Yes Genitourinary: Yes (KIDNEY STONE, UTI) Hypertension: Yes Kidney Stones: Yes Musculoskeletal: Yes Neurologic: Yes (Aneurism) Psychiatric: No Reproductive: Yes (COGNITIVE COMMUNICATION DEFICIT) Respiratory: Yes Seizures: No Thyroid Disease: Yes Past Surgical History Abdominal Surgery: Yes Cardiac Surgery: No Neurologic Surgery: Yes Other Surgery: Yes Social History Alcohol Use: No Tobacco Use: No (Former smoker) Substance Use: No Allergies-Medications (Allergen,Severity, Reaction): Coded Allergies: hydromorphone (Unverified Allergy, Unknown, 03/28/18) *MDRO Multi-Drug Resistant Organism (Verified Adverse Reaction, Unknown, ) 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 Reported Meds & Prescriptions Reported Meds & Active Scripts Active Augmentin (Amoxicillin-Clavulanate) 500-125 mg Tab 500 Mg PO Q8H Diflucan (Fluconazole) 200 Mg Tab 400 Mg PO DAILY 14 Days Reported Metformin (Metformin HCl) 500 Mg Tab 2,000 Mg PO HS With meals Vitamin D3 (Cholecalciferol) 1,000 Unit Chew 1,000 Units CHEW TID Digoxin 0.25 Mg Tab 0.25 Mg PO DAILY Cardizem LA (Diltiazem ER 24 HR) 180 Mg Adele 180 Mg PO DAILY Glipizide 10 Mg Tab 10 Mg PO BIDAC Take 30 minutes before a meal Gabapentin 300 Mg Cap 300 Mg PO HS Omeprazole 20 Mg Tab 20 Mg PO DAILY Folate (Folic Acid) 1 Mg Tab 1 Mg PO DAILY Melatonin 5 Mg Tab 1 Tab PO HS Acetaminophen-Codeine 300-15 mg Tab 1-2 Tab PO Q8HR PRN Claritin (Loratadine) 10 Mg Tab 20 Mg PO DAILY Gabapentin 300 Mg Cap 600 Mg PO DAILY Diff-Stat (Probiotic Product) 1 Cap Cap 1 Cap PO TID Eliquis (Apixaban) 2.5 Mg Tab 2.5 Mg PO BID Synthroid (Levothyroxine Sodium) 50 Mcg Tab 50 Mcg PO DAILY Spiriva Handihaler (Tiotropium Inh) 18 Mcg Cap 1 Cap INH DAILY 1 capsule = 18 mcg Effexor XR 24 HR (Venlafaxine HCl) 150 Mg Cap 150 Mg PO BID Review of Systems General / Constitutional: No: Fever Review of Systems All other ROS: ROS reviewed as documented in chart Past Family Social History Allergies: Coded Allergies: hydromorphone (Unverified Allergy, Unknown, 03/28/18) *MDRO Multi-Drug Resistant Organism (Verified Adverse Reaction, Unknown, ) 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 Active Ordered Medications Current Medications Medications (Trade) Dose Ordered Sig/Campbell Route Start Time Stop Time Status Last Admin (NS Flush) 2 ml BID IV FLUSH 03/28/18 09:00 (NS Flush) 2 ml UNSCH PRN IV FLUSH 03/28/18 03:00 (Aspirin) 325 mg DAILY PO 03/28/18 09:00 03/28/18 10:59 (NovoLOG SUPPLEMENTAL SCALE) 1 ACHS SQ 03/28/18 08:00 (D50w (Vial) Inj) 50 ml UNSCH PRN IV PUSH 03/28/18 03:00 (Glucagon Inj) 1 mg UNSCH PRN OTHER 03/28/18 03:00 (Eliquis) 5 mg BID PO 03/28/18 09:00 03/28/18 10:58 (Lanoxin) 0.25 mg DAILY PO 03/28/18 09:00 03/28/18 09:45 (Cardizem Cd) 180 mg DAILY PO 03/28/18 09:00 03/28/18 09:48 (Lasix) 20 mg DAILY PO 03/28/18 09:00 03/28/18 09:49 (Synthroid) 50 mcg DAILY@0700 PO 03/28/18 07:00 03/28/18 05:57 (Namenda) 10 mg DAILY PO 03/28/18 09:00 03/28/18 09:48 (Spiriva Inh) 18 mcg DAILY INH 03/28/18 09:00 03/28/18 10:59 Exam I&O / VS 03/28/18 03/28/18 03/29/18 15:00 23:00 07:00 Output Total 975 ml Balance -975 ml Output Urine Total 975 ml Vital Signs Date Time Temp Pulse Resp B/P (MAP) Pulse Ox O2 Delivery O2 Flow Rate FiO2 03/28/18 12:00 98.4 55 18 115/60 (78) 100 03/28/18 08:00 97.7 68 18 129/68 (88) 100 03/28/18 04:48 98.0 59 16 101/55 (70) 98 03/28/18 02:07 67 18 116/56 (76) 97 Room Air 03/28/18 01:01 98.0 67 16 136/67 (90) 97 Neurologic: Alert Psychiatric: Cooperative Exam Comments 78-year-old male moderately obese laying in bed no acute distress he will state his name following motor requests both upper extremities impaired short-term memory gross visual butler full peers have right central cecal type scotoma. Tongue midline able to raise all 4 extremity gravity lower extremity neuropathy reflexes 1 to trace plantarflexion no clonus elicited slow fine finger movements upper extremities. Gait not assessed secondary to fall risk. Review/Management Diagnosis/Plan: (1) Occlusion of right internal carotid artery ICD Codes: I65.21 - Occlusion and stenosis of right carotid artery Status: Acute Plan: Possibly cardioembolic Probable cause of right monocular visual loss may have tiny infarct in the right hemisphere as well Recommendations Continue oral anticoagulation with the addition of aspirin Blood pressure lipid control PT OT evaluation Discussed with patient and spouse at bedside (2) Dementia ICD Codes: F03.90 - Unspecified dementia without behavioral disturbance Status: Chronic Plan: Chronic (3) Neuropathy ICD Codes: G62.9 - Polyneuropathy, unspecified Status: Chronic (4) Cerebral aneurysm without rupture ICD Codes: I67.1 - Cerebral aneurysm, nonruptured Status: Chronic Plan: Previous right intracranial aneurysm clip; in addition to tiny left intracranial artery aneurysm (5) Afib ICD Codes: I48.91 - Unspecified atrial fibrillation Status: Acute Plan: On anticoagulation Problem Qualifiers (1) Afib: Qualified Codes: I48.2 - Chronic atrial fibrillation Roberto Carlos Tate MD Mar 28, 2018 15:43
[2018-03-28 16:42] LABS: HEMOGLOBIN A1C 6.4 % (4.3-6.0)
[2018-03-28] MEDS ORDERED: RIVASTIGMINE 9.5 MG/24 HOUR PATCH T-DERMAL ONE (18:00)
[2018-03-28 18:25] LABS: C-REACTIVE PROTEIN 1.44 MG/DL (0.00-0.30); CHOLESTEROL/ HDL RATIO 5.07 RATIO; HDL CHOLESTEROL 25.8 MG/DL (40.0-60.0)
[2018-03-29 04:47] VITALS: BP 111/60; PULSE 64; RESP 17; TEMP 98.5; O2SAT 96
[2018-03-29] MEDS: LEVOTHYROXINE SODIUM 50 MCG TAB PO SCH (05:46)
[2018-03-29 07:00] VITALS: PULSE 58
[2018-03-29 07:09] LABS: AUTOMATED NEUTROPHIL # 4.3 TH/MM3 (1.8-7.7); BASOPHIL # 0.1 TH/MM3 (0-0.2); BASOPHIL % 0.7 % (0.0-2.0); EOSINOPHIL # 0.2 TH/MM3 (0-0.4); EOSINOPHIL % 2.1 % (0.0-4.0); HEMATOCRIT 38.5 % (39.0-51.0); HEMOGLOBIN 13.2 GM/DL (13.0-17.0); LYMPH % 35.5 % (9.0-44.0); LYMPHOCYTE # 2.8 TH/MM3 (1.0-4.8); MEAN CELL VOLUME 95.7 FL (80.0-100.0); MEAN CORPUSCULAR HEMOGLOBIN 32.7 PG (27.0-34.0); MEAN CORPUSCULAR HGB CONC 34.2 % (32.0-36.0); MEAN PLATELET VOLUME 8.6 FL (7.0-11.0); MONO % 6.5 % (0.0-8.0); MONOCYTE # 0.5 TH/MM3 (0-0.9); NEUT % 55.2 % (16.0-70.0); PLATELET COUNT 246 TH/MM3 (150-450); RED BLOOD COUNT 4.02 MIL/MM3 (4.50-5.90); RED CELL DISTRIBUTION WIDTH 14.3 % (11.6-17.2); WHITE BLOOD COUNT 7.8 TH/MM3 (4.0-11.0)
[2018-03-29 07:31] VITALS: BP 114/63; PULSE 57; RESP 18; TEMP 98.5; O2SAT 97
[2018-03-29] MEDS: INSULIN ASPART SUPPLEMENTAL SCALE SQ SCH ×4 (08:00→21:40)
[2018-03-29] MEDS ORDERED: RIVASTIGMINE TOPICAL SCH (09:00)
--- NOTE | 2018-03-29 09:30 | HHI.PR ---
Review/Management Diagnosis/Plan: (1) Occlusion of right internal carotid artery ICD Codes: I65.21 - Occlusion and stenosis of right carotid artery Status: Acute Plan: Possibly cardioembolic Probable cause of right monocular visual loss may have tiny infarct in the right hemisphere as well Recommendations Continue oral anticoagulation with the addition of aspirin; was on Coumadin the past they are not anxious to go back on it Echo results pending if no clots seen discharge planning back to his rehab facility Blood pressure lipid control PT OT evaluation Discussed with patient and spouse at bedside Discussed with medical (2) Dementia ICD Codes: F03.90 - Unspecified dementia without behavioral disturbance Status: Chronic Plan: Chronic (3) Neuropathy ICD Codes: G62.9 - Polyneuropathy, unspecified Status: Chronic (4) Cerebral aneurysm without rupture ICD Codes: I67.1 - Cerebral aneurysm, nonruptured Status: Chronic Plan: Previous right intracranial aneurysm clip; in addition to tiny left intracranial artery aneurysm (5) Afib ICD Codes: I48.91 - Unspecified atrial fibrillation Status: Acute Plan: On anticoagulation Subjective Subjective Comments No acute events reported No headache No chest pain No dyspnea Active Medications Current Medications Medications (Trade) Dose Ordered Sig/Campbell Route Start Time Stop Time Status Last Admin (NS Flush) 2 ml BID IV FLUSH 03/28/18 09:00 03/28/18 22:57 (NS Flush) 2 ml UNSCH PRN IV FLUSH 03/28/18 03:00 (Aspirin) 325 mg DAILY PO 03/28/18 09:00 03/28/18 10:59 (NovoLOG SUPPLEMENTAL SCALE) 1 ACHS SQ 03/28/18 08:00 03/28/18 22:57 (D50w (Vial) Inj) 50 ml UNSCH PRN IV PUSH 03/28/18 03:00 (Glucagon Inj) 1 mg UNSCH PRN OTHER 03/28/18 03:00 (Eliquis) 5 mg BID PO 03/28/18 09:00 03/28/18 22:57 (Lanoxin) 0.25 mg DAILY PO 03/28/18 09:00 03/28/18 09:45 (Cardizem Cd) 180 mg DAILY PO 03/28/18 09:00 03/28/18 09:48 (Lasix) 20 mg DAILY PO 03/28/18 09:00 03/28/18 09:49 (Synthroid) 50 mcg DAILY@0700 PO 03/28/18 07:00 03/29/18 05:46 (Namenda) 10 mg DAILY PO 03/28/18 09:00 03/28/18 09:48 (Spiriva Inh) 18 mcg DAILY INH 03/28/18 09:00 03/28/18 10:59 (Exelon 9.5 Mg Patch.24hr) 1 patch DAILY T-DERMAL 03/29/18 09:00 Miscellaneous Information 1 DAILY T-DERMAL 03/29/18 09:00 Allergies Allergies Coded Allergies hydromorphone (Unverified Allergy, Unknown, 03/28/18) *MDRO Multi-Drug Resistant Organism (Verified Adverse Reaction, Unknown, ) Review of Systems All other ROS: ROS reviewed as documented in chart Exam I&O / VS Vital Signs Date Time Temp Pulse Resp B/P (MAP) Pulse Ox O2 Delivery O2 Flow Rate FiO2 03/29/18 07:31 98.5 57 18 114/63 (80) 97 03/29/18 04:47 98.5 64 17 111/60 (77) 96 03/28/18 23:57 98.9 52 16 97/54 (68) 97 03/28/18 20:42 98.9 68 16 103/62 (76) 97 03/28/18 16:00 98.0 53 16 102/59 (73) 98 03/28/18 12:00 98.4 55 18 115/60 (78) 100 Neurologic: Alert Psychiatric: Cooperative Exam Comments More awake alert oriented 2 follows motor requests conversational, asking appropriate questions, right central cecal type scotoma. Tongue midline able to raise all 4 extremity gravity lower extremity neuropathy reflexes 1 to trace plantarflexion no clonus elicited slow fine finger movements upper extremities. Gait not assessed secondary to fall risk. Objective Micro and Labs Laboratory Tests Test 03/28/18 16:58 03/29/18 06:21 Erythrocyte Sedimentation Rate 34 C-Reactive Protein 1.44 Triglycerides Level 226 Cholesterol Level 131 LDL Cholesterol 60 HDL Cholesterol 25.8 Cholesterol/HDL Ratio 5.07 Vitamin B12 Level 1357 Thyroid Stimulating Hormone 3rd Gen 1.030 White Blood Count 7.8 Red Blood Count 4.02 Hemoglobin 13.2 Hematocrit 38.5 Mean Corpuscular Volume 95.7 Mean Corpuscular Hemoglobin 32.7 Mean Corpuscular Hemoglobin Concent 34.2 Red Cell Distribution Width 14.3 Platelet Count 246 Mean Platelet Volume 8.6 Neutrophils (%) (Auto) 55.2 Lymphocytes (%) (Auto) 35.5 Monocytes (%) (Auto) 6.5 Eosinophils (%) (Auto) 2.1 Basophils (%) (Auto) 0.7 Neutrophils # (Auto) 4.3 Lymphocytes # (Auto) 2.8 Monocytes # (Auto) 0.5 Eosinophils # (Auto) 0.2 Basophils # (Auto) 0.1 CBC Comment DIFF FINAL Differential Comment Problem Qualifiers (1) Afib: Qualified Codes: I48.2 - Chronic atrial fibrillation Roberto Carlos Tate MD Mar 29, 2018 09:30
[2018-03-29] MEDS: [UNRECOGNIZED DRUG - REMARK] T-DERMAL SCH (09:44)
[2018-03-29] MEDS: APIXABAN 5 MG TABLET PO SCH ×2 (09:44→21:40)
[2018-03-29] MEDS: RIVASTIGMINE 9.5 MG/24 HOUR PATCH T-DERMAL SCH (09:44)
[2018-03-29] MEDS: MEMANTINE HCL 10 MG TAB PO SCH (09:45)
[2018-03-29] MEDS: DILTIAZEM-CD 180 MG CAP ER PO SCH (09:45)
[2018-03-29] MEDS: FUROSEMIDE 20 MG TAB PO SCH (09:45)
[2018-03-29] MEDS: SODIUM CHLORIDE 0.9% FLUSH 10 ML FLUSH IV FLUSH SCH ×2 (09:45→21:41)
[2018-03-29] MEDS: DIGOXIN 0.25 MG TAB PO SCH (09:45)
[2018-03-29] MEDS: ASPIRIN 325 MG TAB PO SCH (09:45)
[2018-03-29] MEDS: TIOTROPIUM BROMIDE 18 MCG INH INH SCH (09:46)
--- NOTE | 2018-03-29 09:48 | HHI.PR ---
Subjective Remarks Patient says he is feeling all right. Denies any chest pain or shortness of breath. Says he feels like leaving the hospital. Objective Vital Signs Date Time Temp Pulse Resp B/P (MAP) Pulse Ox O2 Delivery O2 Flow Rate FiO2 03/29/18 07:31 98.5 57 18 114/63 (80) 97 03/29/18 04:47 98.5 64 17 111/60 (77) 96 03/28/18 23:57 98.9 52 16 97/54 (68) 97 03/28/18 20:42 98.9 68 16 103/62 (76) 97 03/28/18 16:00 98.0 53 16 102/59 (73) 98 03/28/18 12:00 98.4 55 18 115/60 (78) 100 I/O 03/28/18 03/28/18 03/28/18 03/29/18 03/29/18 03/29/18 07:00 15:00 23:00 07:00 15:00 23:00 Intake Total 480 ml Output Total 975 ml 700 ml Balance -975 ml -220 ml Intake Oral 480 ml Output Urine Total 975 ml 700 ml Result Diagram: 03/29/18 0621 Objective Remarks GENERAL: Patient lying in bed. Appears comfortable. SKIN: Warm and dry. HEAD: Normocephalic. EYES: No scleral icterus. No injection or drainage. NECK: Supple, trachea midline. No JVD or lymphadenopathy. CARDIOVASCULAR: Regular rate and rhythm without murmurs, gallops, or rubs. RESPIRATORY: Breath sounds equal bilaterally. No accessory muscle use. GASTROINTESTINAL: Abdomen soft, non-tender, nondistended. MUSCULOSKELETAL: No cyanosis, or edema. BACK: Nontender without obvious deformity. No CVA tenderness. A/P Assessment and Plan //TIA Patient presented with strokelike symptoms under a stroke code Neurology consulted, appreciate recommendations. Not a TPA candidate at this time. Continue Eliquis Unable to perform MRI/MRA as patient has aneurysm clips in his brain Carotid ultrasound, echo pending Neurology consulted, appreciate recommendations = echoCardiogram pending. Appreciate neurology assistance. // Diabetes mellitus Holding home metformin Sliding-scale insulin Monitor blood glucose //Atrial fibrillation Continue home Eliquis Continue home medications //CHF/COPD/hypothyroidism Continue home medications //Depression/dementia Continue home medications Discharge Planning Discharge pending negative echocardiogram. Manav Durbin MD Mar 29, 2018 09:48
--- NOTE | 2018-03-29 09:58 | HHI.DS ---
Discharge Summary Admission Date Mar 28, 2018 at 02:21 Discharge Date: Mar 29, 2018 Admitting Diagnosis TIA (1) Afib ICD Code: I48.91 - Unspecified atrial fibrillation Status: Acute (2) TIA (transient ischemic attack) ICD Code: G45.9 - Transient cerebral ischemic attack, unspecified Status: Acute (3) Occlusion of right internal carotid artery ICD Code: I65.21 - Occlusion and stenosis of right carotid artery Status: Acute Procedures No invasive procedures. Brief History - From Admission 78-year-old male with a past medical history significant for atrial fibrillation anticoagulated on Eliquis, CHF, dementia, COPD, hypothyroidism, diabetes mellitus, depression, history of pulmonary embolism, GERD and history of CVA presents the emergency department for the evaluation of strokelike symptoms. Per emergency room documentation the patient was last seen normal around 12:05 AM. When nursing went to check on the patient around 12:15 AM the patient was unresponsive. The patient reports that he woke up in severe pain and unable to move with full body paralysis. At the time of our interview, patient's symptoms have subsided. His is bedside he reports that the patient was recently diagnosed with a "stroke in his right eye" causing partial blindness that occurred last week. The patient denies any chest pain or shortness of breath. No abdominal pain. No nausea/vomiting/diarrhea. No fevers/chills. CBC/BMP: 03/29/18 0621 Significant Findings Laboratory Tests Test 03/28/18 01:01 03/28/18 16:58 03/29/18 06:21 White Blood Count 11.3 TH/MM3 (4.0-11.0) Red Blood Count 4.16 MIL/MM3 (4.50-5.90) 4.02 MIL/MM3 (4.50-5.90) Bedside Hemoglobin 12.9 G/DL (13.0-17.0) Bedside Hematocrit 38.0 % (39.0-51.0) Fibrinogen 432 mg/dL (227-377) Bedside Sodium 135 MMOL/L (137-144) Bedside Chloride 95 MMOL/L (102-111) Bedside Glucose 129 MG/DL (68-110) Hemoglobin A1c 6.4 % (4.3-6.0) Total Creatine Kinase 18 U/L (39-308) Troponin I LESS THAN 0.02 NG/ML Erythrocyte Sedimentation Rate 34 mm/hr (0-20) C-Reactive Protein 1.44 MG/DL (0.00-0.30) Triglycerides Level 226 MG/DL (42-150) HDL Cholesterol 25.8 MG/DL (40.0-60.0) Vitamin B12 Level 1357 PG/ML (193-986) Hematocrit 38.5 % (39.0-51.0) Imaging Last Impressions Neck CTA 03/28/18108 Signed Impressions: CONCLUSION: 1. Age-indeterminate right internal carotid artery occlusion at its origin. 2. Plaque at the origin of the left common carotid artery with moderate grade stenosis. Head CTA 03/28/18108 Signed Impressions: CONCLUSION: 1. Age-indeterminate occlusion of the right ICA at its origin. 2. Filling of the anterior circulation on the right via collaterals. No eviden ce of high-grade intracranial stenosis or occlusion. 3. 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 4. Right-sided anterior aneurysm clip. Head CT 03/28/18 Signed Impressions: CONCLUSION: 1. No acute intracranial findings. 2. 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 3. Diffuse atrophy. 4. Right frontal lobe encephalomalacia. 5. Right-sided frontal subdural hygroma with minimal mass effect. Chest X-Ray 03/28/18 Signed Impressions: CONCLUSION: Mild patchy left lung base opacity indicating atelectasis versus mild consolida tion. Carotid Artery Ultrasound 03/28/18 Signed Impressions: CONCLUSION: 1. Right Internal Carotid Artery: Findings indicate undetectable blood flow abbott ggesting total occlusion. 2. Left Internal Carotid Artery: Minimal plaque without evidence of hemodynami victor manuel significant stenosis. 3. Antegrade flow both vertebral arteries. Hospital Course Stroke signs and symptoms which subsequently resolved. Imaging as above with right ICA occlusion. Patient was seen by neurology who has cleared patient for discharge. Patient previously tried statin with muscle aches. He'll be started on pravastatin which gives a low risk of rhabdomyolysis and muscle pain. He is to follow up with neurology as outpatient. For problem-based summary from most recent progress note, please see below. //TIA Patient presented with strokelike symptoms under a stroke code Neurology consulted, appreciate recommendations. Not a TPA candidate at this time. Continue Eliquis Unable to perform MRI/MRA as patient has aneurysm clips in his brain Carotid ultrasound, echo pending Neurology consulted, appreciate recommendations = echoCardiogram pending. Appreciate neurology assistance. // Diabetes mellitus Holding home metformin Sliding-scale insulin Monitor blood glucose //Atrial fibrillation Continue home Eliquis Continue home medications //CHF/COPD/hypothyroidism Continue home medications //Depression/dementia Continue home medications Discharge Planning Discharge pending negative echocardiogram. Pt Condition on Discharge: Good Discharge Disposition: Discharge to SNF Discharge Time: <= 30 minutes Discharge Instructions DIET: Follow Instructions for: Heart Healthy Diet, Diabetic Diet Activities you can perform: Regular-No Restrictions Other Activity Instructions: Up with supervision Follow up Referrals: Neurology - 1 Week with Roberto Carlos Tate MD PCP Follow-up - 1 Week Continued Medications: Apixaban (Eliquis) 5 Mg Tab 5 MG PO BID for Blood Clot Prevention, #60 TAB 0 Refills Aspirin (Aspirin) 81 Mg Chew 81 MG CHEW DAILY, TAB 0 Refills Calcium Carbonate (Antacid) (Tums) 500 Mg Chew 500 MG CHEW PRN for HEARTBURN, TAB 0 Refills Cholecalciferol (Vitamin D3) 1,000 Unit Chew 1000 UNITS CHEW TID for Nutritional Supplement, #1 BOTTLE 0 Refills Digoxin (Digoxin) 0.25 Mg Tab 0.25 MG PO DAILY for Regulate Heart Beat, #30 TAB 0 Refills Diltiazem ER 24 HR (Cardizem LA) 180 Mg Adele 180 MG PO DAILY, #30 TAB 0 Refills Folic Acid (Folic Acid) 0.8 Mg Tab 1 MG PO DAILY for Nutritional Supplement, TAB 0 Refills Furosemide (Furosemide) 20 Mg Tab 20 MG PO DAILY, #30 TAB 0 Refills Glipizide (Glipizide) 10 Mg Tab 10 MG PO BIDAC for Blood Sugar Management, #60 TAB 0 Refills Take 30 minutes before a meal Insulin Lispro (Human) Inj (Humalog Inj) 1,000 Unit/10 Ml Vial 2-12 UNITS SQ ACHS for Blood Sugar Management, #1 VIAL 0 Refills Max dose at bedtime:( )units; sugars < 70,(0)units; sugars 150-199,(2)units; sugars 200-249,(4)units; sugars 250-299,(7)units; sugars 300-349,(10)units; sugars more than 349,(12)units. Ipratropium-Albuterol Neb (Duoneb) 0.5-2.5 Mg/3 Ml Neb 1 NEBULE INH Q8HR NEB for Breathing Treatment, #90 NEBULE 0 Refills Levothyroxine (Synthroid) 50 Mcg Tab 50 MCG PO DAILY for Thyroid, TAB Loratadine (Claritin) 10 Mg Cap 10 MG PO DAILY for Allergy Management, CAP 0 Refills Memantine (Memantine) 10 Mg Tab 10 MG PO DAILY for Alzheimer's Dementia, TAB 0 Refills Metformin (Metformin) 1,000 Mg Tab 1000 MG PO BIDPC for Blood Sugar Management, #60 TAB 0 Refills Omeprazole (Omeprazole) 20 Mg Tab 20 MG PO DAILY, #30 TAB 0 Refills Ondansetron Odt (Zofran Odt) 4 Mg Tab 4 MG SL Q6HR PRN for Nausea/Vomiting, #30 TAB 0 Refills Phenyleph/Shark [place].oil/Mo/Pet (Hemorrhoidal Ointment) 57 Gm Oint...g. Polyvinyl Alcohol-Povidone Opth Drops (Refresh Opth Drops) 1.4-0.6% Drops 1-2 DROP EACH EYE TID PRN for DRY EYE, #1 BOTTLE 0 Refills Rivastigmine (Rivastigmine) 4.6 Mg/24 Hour Patch.td24 Tiotropium Inh (Spiriva Handihaler) 18 Mcg Cap 1 CAP INH DAILY for COPD, CAP 1 capsule = 18 mcg Venlafaxine (Effexor) 25 Mg Tab 25 MG PO Q12H, #60 TAB 0 Refills Discontinued Medications: Acetaminophen-Codeine (Acetaminophen-Codeine) 300-15 mg Tab 1-2 TAB PO Q8HR PRN for PAIN, TAB 0 Refills Gabapentin (Gabapentin) 100 Mg Cap 400 MG PO TID, #90 CAP 0 Refills Trazodone (Trazodone) 50 Mg Tab 50 MG PO HS for Control Depression, #30 TAB 0 Refills Manav Durbin MD Mar 29, 2018 09:58
[2018-03-29 13:37] LABS: ALBUMIN 3.1 GM/DL (3.4-5.0); BICARBONATE 24.6 MEQ/L (21.0-32.0); CALCIUM 8.8 MG/DL (8.5-10.1); CREATININE 1.19 MG/DL (0.60-1.30); MAGNESIUM 2.2 MG/DL (1.5-2.5)
[2018-03-29 13:38] LABS: PHOSPHORUS 2.6 MG/DL (2.5-4.9)
[2018-03-29 13:40] LABS: CHOLESTEROL/ HDL RATIO 4.51 RATIO; HDL CHOLESTEROL 28.6 MG/DL (40.0-60.0)
[2018-03-29 14:15] VITALS: BP 99/55; PULSE 63; RESP 18; TEMP 98.7; O2SAT 93
[2018-03-29 15:00] VITALS: PULSE 61
[2018-03-29] MEDS ORDERED: PRAV10TA PO (16:21)
[2018-03-29] MEDS ORDERED: COQ1200C3 PO (16:21)
--- NOTE | 2018-03-29 17:12 | ECHRPT ---
Indication: CVA/TIA CONCLUSIONS Normal left ventricular size. Mild concentric left ventricular hypertrophy. The left ventricular systolic function is normal with an estimated ejection fraction in the range of 60-65%. No regional wall motion abnormalities are present. The left atrial size is moderately dilated. The right atrial size is mildly dilated. Trace mitral valve regurgitation. Mild mitral annular calcification. There is mild tricuspid valve regurgitation. The estimated pulmonary arterial pressure is 40 mmHg. BP: 129 / 68 HR: 68 Rhythm: MEASUREMENTS (Male / Female) Normal Values Technical Quality: 2D ECHO LV Diastolic Diameter PLAX 4.0 cm 4.2 - 5.9 / 3.9 - 5.3 cm LV Systolic Diameter PLAX 3.1 cm IVS Diastolic Thickness 1.5 cm 0.6 - 1.0 / 0.6 - 0.9 cm LVPW Diastolic Thickness 1.5 cm 0.6 - 1.0 / 0.6 - 0.9 cm LV Relative Wall Thickness 0.8 RV Internal Dim ED PLAX 3.2 cm LVOT Diameter 2.4 cm Aortic Root Diameter 3.8 cm LA Systolic Diameter LX 5.3 cm 3.0 - 4.0 / 2.7 - 3.8 cm M-MODE AV Cusp Separation MM 1.9 cm DOPPLER AV Peak Velocity 142.0 cm/s AV Peak Gradient 8.1 mmHg AV Mean Gradient 3.5 mmHg AV Velocity Time Integral 21.7 cm LVOT Peak Velocity 79.7 cm/s LVOT Peak Gradient 2.5 mmHg LVOT Velocity Time Integral 13.5 cm AV Area Cont Eq vti 2.8 cm AV Area Cont Eq pk 2.5 cm Mitral E Point Velocity 125.0 cm/s TR Peak Velocity 312.0 cm/s TR Peak Gradient 38.9 mmHg Right Atrial Pressure 10.0 mmHg Pulmonary Artery Systolic Pressu 48.9 mmHg Right Ventricular Systolic Press 48.9 mmHg PV Peak Velocity 66.2 cm/s PV Peak Gradient 1.8 mmHg FINDINGS LEFT VENTRICLE Normal left ventricular size. Mild concentric left ventricular hypertrophy. The left ventricular systolic function is normal with an estimated ejection fraction in the range of 60-65%. No regional wall motion abnormalities are present. RIGHT VENTRICLE Normal right ventricular size and systolic function. LEFT ATRIUM The left atrial size is moderately dilated. RIGHT ATRIUM The right atrial size is mildly dilated. ATRIAL SEPTUM No atrial level shunt is demonstrated by color flow Doppler interrogation. AORTA The aortic root and proximal ascending aorta are normal in size on limited imaging. MITRAL VALVE Trace mitral valve regurgitation. Mild mitral annular calcification. AORTIC VALVE Trileaflet aortic valve. No aortic valve stenosis or regurgitation. TRICUSPID VALVE There is mild tricuspid valve regurgitation. The estimated pulmonary arterial pressure is 40 mmHg. PULMONARY VALVE Mild pulmonary valve regurgitation. PERICARDIUM No pericardial effusion. Siddhartha Stephens MD (Electronically Signed) Final Date:29 March 2018 17:11
[2018-03-29 20:00] VITALS: BP 107/59; PULSE 71; RESP 17; O2SAT 93
--- NOTE | 2018-03-29 21:37 | MG ---
cc: Roberto Carlos Tate MD, Mandeep MD EEG NUMBER [id number] 5-7 Hz activity 10-50 microvolts with low amplitude delta frequencies occurring. Slow eye movements suggestive of drowsy state. Limited driving with photic stimulation. Attenuation background further increased delta activity suggestive of entry into stage I followed by stage II sleep. Single 12-lead EKG showing irregularly irregular rhythm. INTERPRETATION: Mild encephalopathy in sleep state. Clinical correlation. MD THADDEUS Haq/ , 09:12 PM , 09:36 PM
[2018-03-30] VITALS: PULSE 53
[2018-03-30 01:18] VITALS: BP 127/62; PULSE 54; RESP 17; TEMP 98.5; O2SAT 97
[2018-03-30] MEDS: LEVOTHYROXINE SODIUM 50 MCG TAB PO SCH (06:06)
[2018-03-30 07:00] VITALS: PULSE 58
[2018-03-30] MEDS: INSULIN ASPART SUPPLEMENTAL SCALE SQ SCH (08:00)
[2018-03-30] MEDS ORDERED: REMOVE OLD PATCH T-DERMAL SCH (09:00)
[2018-03-30 09:07] VITALS: BP 122/58; PULSE 57; RESP 15; TEMP 98.3; O2SAT 95
--- NOTE | 2018-03-30 09:35 | HHI.PR ---
Review/Management Diagnosis/Plan: (1) Occlusion of right internal carotid artery ICD Codes: I65.21 - Occlusion and stenosis of right carotid artery Status: Acute Plan: Possibly cardioembolic Probable cause of right monocular visual loss may have tiny infarct in the right hemisphere as well Recommendations neuro stable Continue oral anticoagulation with the addition of aspirin; was on Coumadin the past they are not anxious to go back on it bp in good range add statin echo good ef; no thrombus ok to d/c back to SNF Blood pressure lipid control PT OT evaluation Discussed with patient and spouse at bedside outpatient f/u (2) Dementia ICD Codes: F03.90 - Unspecified dementia without behavioral disturbance Status: Chronic Plan: Chronic (3) Neuropathy ICD Codes: G62.9 - Polyneuropathy, unspecified Status: Chronic (4) Cerebral aneurysm without rupture ICD Codes: I67.1 - Cerebral aneurysm, nonruptured Status: Chronic Plan: Previous right intracranial aneurysm clip; in addition to tiny left intracranial artery aneurysm (5) Afib ICD Codes: I48.91 - Unspecified atrial fibrillation Status: Acute Plan: On anticoagulation Subjective Subjective Comments No acute events reported No headache No chest pain No dyspnea Active Medications Current Medications Medications (Trade) Dose Ordered Sig/Campbell Route Start Time Stop Time Status Last Admin (NS Flush) 2 ml BID IV FLUSH 03/28/18 09:00 03/29/18 09:45 (NS Flush) 2 ml UNSCH PRN IV FLUSH 03/28/18 03:00 (Aspirin) 325 mg DAILY PO 03/28/18 09:00 03/29/18 09:45 (NovoLOG SUPPLEMENTAL SCALE) 1 ACHS SQ 03/28/18 08:00 03/28/18 22:57 (D50w (Vial) Inj) 50 ml UNSCH PRN IV PUSH 03/28/18 03:00 (Glucagon Inj) 1 mg UNSCH PRN OTHER 03/28/18 03:00 (Eliquis) 5 mg BID PO 03/28/18 09:00 03/29/18 21:40 (Lanoxin) 0.25 mg DAILY PO 03/28/18 09:00 03/29/18 09:45 (Cardizem Cd) 180 mg DAILY PO 03/28/18 09:00 03/29/18 09:45 (Lasix) 20 mg DAILY PO 03/28/18 09:00 03/29/18 09:45 (Synthroid) 50 mcg DAILY@0700 PO 03/28/18 07:00 03/30/18 06:06 (Namenda) 10 mg DAILY PO 03/28/18 09:00 03/29/18 09:45 (Spiriva Inh) 18 mcg DAILY INH 03/28/18 09:00 03/29/18 09:46 (Exelon 9.5 Mg Patch.24hr) 1 patch DAILY T-DERMAL 03/29/18 09:00 03/29/18 09:44 Miscellaneous Information 1 DAILY T-DERMAL 03/29/18 09:00 03/29/18 09:44 Allergies Allergies Coded Allergies hydromorphone (Unverified Allergy, Unknown, 03/28/18) *MDRO Multi-Drug Resistant Organism (Verified Adverse Reaction, Unknown, ) Review of Systems All other ROS: ROS reviewed as documented in chart Exam I&O / VS Vital Signs Date Time Temp Pulse Resp B/P (MAP) Pulse Ox O2 Delivery O2 Flow Rate FiO2 03/30/18 09:07 98.3 57 15 122/58 (79) 95 03/30/18 01:18 98.5 54 17 127/62 (83) 97 03/30/18 00:00 53 03/29/18 20:00 71 17 107/59 (75) 93 03/29/18 17:05 03/29/18 15:00 61 03/29/18 14:15 98.7 63 18 99/55 (70) 93 Neurologic: Alert Psychiatric: Cooperative Exam Comments resting, alerts oriented 2 follows motor requests conversational, asking appropriate questions, right central cecal type scotoma. Tongue midline able to raise all 4 extremity gravity lower extremity neuropathy reflexes 1 to trace plantarflexion no clonus elicited slow fine finger movements upper extremities. Gait not assessed secondary to fall risk. Objective Micro and Labs Laboratory Tests Test 03/29/18 13:02 Blood Urea Nitrogen 15 Creatinine 1.19 Random Glucose 142 Albumin 3.1 Calcium Level 8.8 Phosphorus Level 2.6 Magnesium Level 2.2 Sodium Level 136 Potassium Level 4.1 Chloride Level 101 Carbon Dioxide Level 24.6 Anion Gap 10 Estimat Glomerular Filtration Rate 59 Triglycerides Level 223 Cholesterol Level 129 LDL Cholesterol 56 HDL Cholesterol 28.6 Cholesterol/HDL Ratio 4.51 Problem Qualifiers (1) Afib: Qualified Codes: I48.2 - Chronic atrial fibrillation Roberto Carlos Tate MD Mar 30, 2018 09:35
[2018-03-30] MEDS: TIOTROPIUM BROMIDE 18 MCG INH INH SCH (09:43)
[2018-03-30] MEDS: SODIUM CHLORIDE 0.9% FLUSH 10 ML FLUSH IV FLUSH SCH (09:43)
[2018-03-30] MEDS: RIVASTIGMINE 9.5 MG/24 HOUR PATCH T-DERMAL SCH (09:44)
[2018-03-30] MEDS: DIGOXIN 0.25 MG TAB PO SCH (09:44)
[2018-03-30] MEDS: ASPIRIN 325 MG TAB PO SCH (09:44)
[2018-03-30] MEDS: DILTIAZEM-CD 180 MG CAP ER PO SCH (09:44)
[2018-03-30] MEDS: APIXABAN 5 MG TABLET PO SCH (09:44)
[2018-03-30] MEDS: MEMANTINE HCL 10 MG TAB PO SCH (09:44)
[2018-03-30] MEDS: FUROSEMIDE 20 MG TAB PO SCH (09:45)
[2018-03-30] MEDS: [UNRECOGNIZED DRUG - REMARK] T-DERMAL SCH (09:45)
[2018-03-30] MEDS ORDERED: ATORVASTATIN 40 MG TAB PO SCH (21:00)
== END 2018-03-30 11:48 ==
LOC: NEPC 01:01 → NEDA 02:21 → NEPHCDU 04:01
PROVIDERS: ADMIT Internal Medicine; ATTEND Internal Medicine
DX: I48.2 Chronic atrial fibrillation (principal); I65.21 Occlusion and stenosis of right carotid artery; F03.90 Unspecified dementia, unspecified severity, without behavioral disturbance, psychotic disturbance, mood disturbance, and anxiety; F32.9 Major depressive disorder, single episode, unspecified; J44.9 Chronic obstructive pulmonary disease, unspecified; I11.0 Hypertensive heart disease with heart failure; I50.9 Heart failure, unspecified; I67.1 Cerebral aneurysm, nonruptured; G93.89 Other specified disorders of brain; G62.9 Polyneuropathy, unspecified; E11.9 Type 2 diabetes mellitus without complications; E03.9 Hypothyroidism, unspecified; D18.1 Lymphangioma, any site; K21.9 Gastro-esophageal reflux disease without esophagitis; H91.90 Unspecified hearing loss, unspecified ear; Z79.01 Long term (current) use of anticoagulants; Z79.84 Long term (current) use of oral hypoglycemic drugs; Z86.711 Personal history of pulmonary embolism; Z86.73 Personal history of transient ischemic attack (TIA), and cerebral infarction without residual deficits; Z86.79 Personal history of other diseases of the circulatory system; Z87.442 Personal history of urinary calculi; Z87.891 Personal history of nicotine dependence
CPT/HCPCS: 70450; 70496; 70498; 71045; 80048; 80061; 80069; 82550; 82607; 82948; 83036; 83735; 84443; 84484; 85025; 85384; 85610; 85652; 85730; 86140; 86850; 86900; 86901; 93005; 93306; 93880; 95819; 96360; 96372; 97116; 97162; 97166; 99291; G0378; G8987; G8988; J1815; J7030; Q9967

== ENCOUNTER 2018-10-07 14:18 | Inpatient (IN) ==
[2018-10-07] MEDS ORDERED: Acetaminophen 325 MG Tablet PO ONE (14:30)
[2018-10-07] MEDS ORDERED: Sod Chloride 0.9% Inj 1,000 ML IV.SIG SCH (14:30)
--- NOTE | 2018-10-07 14:48 | ED ---
HPI General Chief complaint: Weakness Stated complaint: Gen weakness Time Seen by Provider: 10/07/18 14:22 History of Present Illness HPI Narrative: Patient is a 78-year-old male CVA encephalopathy, was brought to emergency room for generalized weakness, his temperature is 100.9. Patient denies cough, dysuria, chest or abdominal pain has some muscle body aches. Patient has weakness in all extremities. No focal neurologic deficit noted. Related Data Home Medications Medication Instructions Recorded Confirmed apixaban [Eliquis] 5 mg PO BID 10/07/18 10/07/18 aspirin [Aspir-81] 81 mg PO DAILY 10/07/18 10/07/18 digoxin 250 mcg PO DAILY 10/07/18 10/07/18 diltiazem HCl 180 mg PO DAILY 10/07/18 10/07/18 folic acid 1 mg PO DAILY 10/07/18 10/07/18 furosemide 20 mg PO DAILY 10/07/18 10/07/18 glipizide 10 mg PO BID 10/07/18 10/07/18 insulin lispro [Humalog U-100 1 sliding scale dose SUBCUT UD 10/07/18 10/07/18 Insulin] ipratropium-albuterol 3 ml INHALATION Q6-8H PRN 10/07/18 10/07/18 levothyroxine 50 mcg PO DAILY 10/07/18 10/07/18 memantine 10 mg PO BID 10/07/18 10/07/18 metformin 500 mg PO BID 10/07/18 10/07/18 omeprazole 20 mg PO DAILY 10/07/18 10/07/18 ondansetron HCl [Zofran] 4 mg PO TID-QID PRN 10/07/18 10/07/18 pravastatin 10 mg PO DAILY 10/07/18 10/07/18 pravastatin 10 mg PO DAILY 10/07/18 10/07/18 prednisone 20 mg PO DAILY 10/07/18 10/07/18 rivastigmine 4.6 mg TRANSDERMAL DAILY 10/07/18 10/07/18 tiotropium bromide 1 cap INHALATION DAILY 10/07/18 10/07/18 venlafaxine 75 mg PO BID 10/07/18 10/07/18 Allergies Allergy/AdvReac Type Severity Reaction Status Date / Time hydromorphone Allergy Unknown Unverified 03/28/18 02:09 *MDRO Multi-Drug Resistant AdvReac Unknown Uncoded 03/28/18 02:09 Organism Review of Systems ROS: all other systems reviewed are negative [facility] Social History Social History Smoking Status: Unknown if ever smoked How Often Do You Have a Drink Containing Alcohol: Unable to Obtain Immunization History Tetanus Immunization: Unsure Course Initial Documented Vital Signs Temperature 100.9 F H 10/07/18 14:28 Pulse Rate 83 10/07/18 14:28 Respiratory Rate 20 10/07/18 14:28 Blood Pressure 140/70 10/07/18 14:28 Pulse Oximetry 96 10/07/18 14:28 Last Documented Vital Signs Temperature 100.9 F H 10/07/18 14:28 Pulse Rate 67 10/07/18 15:43 Respiratory Rate 22 10/07/18 15:43 Blood Pressure 143/74 H 10/07/18 15:43 Pulse Oximetry 92 L 10/07/18 15:43 Medical Decision Making MDM Narrative Medical decision making narrative: Patient has patchy infiltrates in his x-ray, white count is elevated at 11.1, fever 100.9. Patient was treated at long term for possible pneumonia, his oxygen saturation is 95% on room air. Case discussed with Dr. Amado who agreed to keep the patient on observation, Levaquin IV given. Medical Screen Exam Complete: Yes Emergency Medical Condition: Yes Differential Diagnosis Differential Diagnosis: URI versus UTI versus influenza. Lab Data Result diagrams: 10/07/18 14:58 10/07/18 14:58 Lab Results 10/07/18 10/07/18 10/07/18 Range/Units 14:50 14:58 14:58 WBC 11.1 H (4.0-11.0) th/mm3 RBC 4.10 L (4.50-5.90) mil/mm3 Hgb 13.7 (13.0-17.0) gm/dL Hct 39.3 (39.0-51.0) % MCV 95.8 (80.0-100.0) fL MCH 33.5 (27.0-34.0) pg MCHC 35.0 (32.0-36.0) % RDW 14.0 (11.6-17.2) % Plt Count 249 (150-450) th/mm3 MPV 8.3 (7.0-11.0) fL Neut % (Auto) 84.3 H (16.0-70.0) % Lymph % (Auto) 10.6 (9.0-44.0) % Frontier % (Auto) 4.7 (0.0-8.0) % Eos % (Auto) 0.1 (0.0-4.0) % Baso % (Auto) 0.3 (0.0-2.0) % Neut # (Auto) 9.3 H (1.8-7.7) th/mm3 Lymph # (Auto) 1.2 (1.0-4.8) th/mm3 Frontier # (Auto) 0.5 (0.0-0.9) th/mm3 Eos # (Auto) 0.0 (0.0-0.4) th/mm3 Baso # (Auto) 0.0 (0.0-0.2) th/mm3 WBC Differential . Differential Comment Auto diff final Sodium 133 L (136-145) meq/L Potassium 4.8 (3.5-5.1) meq/L Chloride 101 (98-107) meq/L Carbon Dioxide 23.7 (21.0-32.0) meq/L Anion Gap 8 (5-15) meq/L BUN 19 H (7-18) mg/dL Creatinine 1.18 (0.60-1.30) mg/dL Estimated GFR 60 L (>89) mL/min Random Glucose 141 H (74-106) mg/dL Lactic Acid (0.4-2.0) mmol/L Calcium 8.2 L (8.5-10.1) mg/dL Magnesium 2.0 (1.5-2.5) mg/dL Total Bilirubin 0.2 (0.2-1.0) mg/dL AST 22 (15-37) U/L ALT 18 (12-78) U/L Alkaline Phosphatase 31 L (45-117) U/L Troponin I Less than 0.02 L (0.02-0.05) ng/mL Total Protein 7.1 (6.4-8.2) g/dL Albumin 3.1 L (3.4-5.0) g/dL Urine Color Straw (Yellw/Straw) Urine Clarity Clear (Clear) Urine pH 7.0 (5.0-8.5) Ur Specific [place] 1.008 (1.002-1.035) Urine Protein Negative (Neg-Trace) mg/dL Urine Glucose (UA) Negative (Negative) mg/dL Urine Ketones Negative (Negative) mg/dL Urine Occult Blood Negative (Negative) Urine Nitrate Negative (Negative) Urine Bilirubin Negative (Negative) Urine Urobilinogen Less than 2 (Less than 2) mg/dL Ur Leukocyte Esterase Negative (Negative) Urine RBC Less than 1 (0-3) /hpf Urine WBC Less than 1 (0-5) /hpf Urine Mucus Few H (Occasional) /lpf Micro UA Comment Culture not ind Ur Microscopic Review Not Reportable Urine Culture Comments Culture not ind 10/07/18 Range/Units 14:58 WBC (4.0-11.0) th/mm3 RBC (4.50-5.90) mil/mm3 Hgb (13.0-17.0) gm/dL Hct (39.0-51.0) % MCV (80.0-100.0) fL MCH (27.0-34.0) pg MCHC (32.0-36.0) % RDW (11.6-17.2) % Plt Count (150-450) th/mm3 MPV (7.0-11.0) fL Neut % (Auto) (16.0-70.0) % Lymph % (Auto) (9.0-44.0) % Frontier % (Auto) (0.0-8.0) % Eos % (Auto) (0.0-4.0) % Baso % (Auto) (0.0-2.0) % Neut # (Auto) (1.8-7.7) th/mm3 Lymph # (Auto) (1.0-4.8) th/mm3 Frontier # (Auto) (0.0-0.9) th/mm3 Eos # (Auto) (0.0-0.4) th/mm3 Baso # (Auto) (0.0-0.2) th/mm3 WBC Differential Differential Comment Sodium (136-145) meq/L Potassium (3.5-5.1) meq/L Chloride (98-107) meq/L Carbon Dioxide (21.0-32.0) meq/L Anion Gap (5-15) meq/L BUN (7-18) mg/dL Creatinine (0.60-1.30) mg/dL Estimated GFR (>89) mL/min Random Glucose (74-106) mg/dL Lactic Acid 2.9 H (0.4-2.0) mmol/L Calcium (8.5-10.1) mg/dL Magnesium (1.5-2.5) mg/dL Total Bilirubin (0.2-1.0) mg/dL AST (15-37) U/L ALT (12-78) U/L Alkaline Phosphatase (45-117) U/L Troponin I (0.02-0.05) ng/mL Total Protein (6.4-8.2) g/dL Albumin (3.4-5.0) g/dL Urine Color (Yellw/Straw) Urine Clarity (Clear) Urine pH (5.0-8.5) Ur Specific [place] (1.002-1.035) Urine Protein (Neg-Trace) mg/dL Urine Glucose (UA) (Negative) mg/dL Urine Ketones (Negative) mg/dL Urine Occult Blood (Negative) Urine Nitrate (Negative) Urine Bilirubin (Negative) Urine Urobilinogen (Less than 2) mg/dL Ur Leukocyte Esterase (Negative) Urine RBC (0-3) /hpf Urine WBC (0-5) /hpf Urine Mucus (Occasional) /lpf Micro UA Comment Ur Microscopic Review Urine Culture Comments Imaging Data Radiologist's impression: Chest X-Ray 10/07/18 14:28 CONCLUSION: Cardiomegaly. Discharge Plan Discharge Disposition Patient Disposition: ED Admit(ED Internal Use Only) Discharge Condition Condition: Fair Discharge Order Discharge Orders: ED Use Only Admit Order (Routine); Ordered 10/07/18 Ordered By: Danny Grey Physicians Team ED Provider: Danny Grey Primary Care Provider: Cipriano Marte Rxs /Orders / Referrals /Forms Prescriptions: No Action metformin 500 mg Tablet 500 mg PO BID RF: 0 venlafaxine 75 mg Tablet 75 mg PO BID RF: 0 ipratropium-albuterol 0.5 mg-3 mg(2.5 mg base)/3 mL Solution For Nebulization 3 ml INHALATION Q6-8H PRN (Reason: Wheezing) RF: 0 ondansetron HCl [Zofran] 4 mg Tablet 4 mg PO TID-QID PRN (Reason: Nausea) RF: 0 glipizide 10 mg Tablet 10 mg PO BID RF: 0 prednisone 20 mg Tablet 20 mg PO DAILY RF: 0 digoxin 250 mcg Tablet 250 mcg PO DAILY RF: 0 aspirin [Aspir-81] 81 mg Tablet,Delayed Release (Dr/Ec) 81 mg PO DAILY RF: 0 pravastatin 10 mg Tablet 10 mg PO DAILY RF: 0 pravastatin 10 mg Tablet 10 mg PO DAILY RF: 0 levothyroxine 50 mcg Tablet 50 mcg PO DAILY RF: 0 omeprazole 20 mg Capsule,Delayed Release(Dr/Ec) 20 mg PO DAILY RF: 0 folic acid 1 mg Tablet 1 mg PO DAILY RF: 0 furosemide 20 mg Tablet 20 mg PO DAILY RF: 0 insulin lispro [Humalog U-100 Insulin] 100 unit/mL Solution 1 sliding scale dose SUBCUT UD RF: 0 diltiazem HCl 180 mg Capsule,Ext.Rel 24h Degradable 180 mg PO DAILY RF: 0 memantine 10 mg Tablet 10 mg PO BID RF: 0 tiotropium bromide 18 mcg Capsule, W/Inhalation Device 1 cap INHALATION DAILY RF: 0 rivastigmine 4.6 mg/24 hr Patch 24 Hour 4.6 mg TRANSDERMAL DAILY RF: 0 apixaban [Eliquis] 5 mg Tablet 5 mg PO BID RF: 0 Discharge Interventions Interventions: Vital Signs Last Done: 10/07/18 15:43 Status ED Status: Admitted Observation Patient
--- NOTE | 2018-10-07 14:57 | XR ---
EXAM DATE: 10/07/2018 2:54 PM EST AGE/SEX: 78 years / Male INDICATIONS: Congestion. CLINICAL DATA: This is the patient's initial encounter. Patient reports that signs and symptoms have been present for 1 day and indicates a pain score of 0/10. MEDICAL/SURGICAL HISTORY: . Osteoarthritis. Chronic obstructive pulmonary disease. Renal calcul i. Hypothyroidism. Peripheral neuropathy. Aneurysm. AFib. UTI. HTN. Diabetes. MRSA. Tonsillectomy. Ap pendectomy. Rectum surgery. Cystoscopy with stent placement. Right knee surgery. Rotator cuff repair x2. Spinal fusion L5. . COMPARISON: [facility] [place], CHEST SINGLE AP, 03/28/2018. . FINDINGS: The heart size is enlarged. The lungs are grossly clear. A significant effusion is not clearly seen. CONCLUSION: Cardiomegaly. Electronically signed by: Arpit Bender MD Board Certified Radiologist 10/07/2018 2:55 PM EST
[2018-10-07 15:13] LABS: Baso % (Auto) 0.3 % (0.0-2.0); Eos % (Auto) 0.1 % (0.0-4.0); Hematocrit 39.3 % (39.0-51.0); Hemoglobin 13.7 gm/dL (13.0-17.0); Lymph # (Auto) 1.2 th/mm3 (1.0-4.8); Lymph % (Auto) 10.6 % (9.0-44.0); Mean Corpuscular Hemoglobin 33.5 pg (27.0-34.0); Mean Corpuscular Volume 95.8 fL (80.0-100.0); Mean Platelet Volume 8.3 fL (7.0-11.0); Mono # (Auto) 0.5 th/mm3 (0.0-0.9); Mono % (Auto) 4.7 % (0.0-8.0); Neut # (Auto) 9.3 th/mm3 (1.8-7.7); Neut % (Auto) 84.3 % (16.0-70.0); Platelet Count 249 th/mm3 (150-450); White Blood Count 11.1 th/mm3 (4.0-11.0)
[2018-10-07 15:20] LABS: Bilirubin,Urine Negative (Negative); Clarity,Urine Clear (Clear); Color,Urine Straw (Yellw/Straw); Glucose,Urine (UA) Negative (Negative); Leukocyte Esterase,Urine Negative (Negative); Mucus,Urine Few /lpf (Occasional); Nitrite,Urine Negative (Negative); Specific Gravity,Urine 1.008 (1.002-1.035)
[2018-10-07 15:33] LABS: Alkaline Phosphatase 31 U/L (45-117); Total Protein 7.1 g/dL (6.4-8.2)
[2018-10-07 15:34] LABS: Alanine Aminotransferase 18 U/L (12-78); Albumin 3.1 g/dL (3.4-5.0); Anion Gap 8 meq/L (5-15); Aspartate Aminotransferase 22 U/L (15-37); Blood Urea Nitrogen 19 mg/dL (7-18); Calcium 8.2 mg/dL (8.5-10.1); Carbon Dioxide 23.7 meq/L (21.0-32.0); Chloride 101 meq/L (98-107); Glomerular Filtration Rate 60 mL/min (>89); Glucose,Random 141 mg/dL (74-106); Potassium 4.8 meq/L (3.5-5.1); Sodium 133 meq/L (136-145)
[2018-10-07] MEDS ORDERED: Levofloxacin 500 mg Premix Inj 500 MG/100 ML PIGGYBACK IV.SIG ONE (15:43)
[2018-10-07] MEDS ORDERED: Bisacodyl 10 MG Supp RECTAL PRN (16:33)
--- NOTE | 2018-10-07 17:01 | P.HPIM ---
History of Present Illness Primary Care Physician: Cipriano Marte MD Chief Complaint: Fever x 3 weeks History of Present Illness: 78-year-old male with history of type 2 diabetes, dementia, CVA presents to the ER following 3 weeks of ongoing fever associated with upper respiratory symptoms that include large amounts of green phlegm coughed up daily. His has been trying to get him on an antibiotic at his NURSING HOME, he was finally placed on ciprofloxacin 3 days ago but his condition continues to get worse, he has become increasingly weak and has unreliable ambulation with high risk fall at this point. ER labs reveal elevated lactic acid level which places him at risk for sepsis. He has a history of pulmonary embolism with IVC filter placed, no history of atrial fibrillation 's report. She states that he has not had any urinary symptoms. She denies any chest pain or struggling with breathing. Review of Systems Review of Systems: all other systems reviewed are negative [facility] Medical History Medical History CVA (cerebral vascular accident) (Acute) Dementia (Acute) Presence of IVC filter (Acute) Pulmonary embolism (Acute) Type 2 diabetes mellitus (Acute) Family History Family History Other Hypertension Social History Social History Smoking Status: Unknown if ever smoked How Often Do You Have a Drink Containing Alcohol: Unable to Obtain Immunization History Tetanus Immunization: Unsure Medications and Allergies Allergies Allergy/AdvReac Type Severity Reaction Status Date / Time hydromorphone Allergy Unknown Unverified 03/28/18 02:09 *MDRO Multi-Drug Resistant AdvReac Unknown Uncoded 03/28/18 02:09 Organism Home Medications Medication Instructions Recorded Confirmed Type apixaban [Eliquis] 5 mg PO BID 10/07/18 10/07/18 History aspirin [Aspir-81] 81 mg PO DAILY 10/07/18 10/07/18 History digoxin 250 mcg PO DAILY 10/07/18 10/07/18 History diltiazem HCl 180 mg PO DAILY 10/07/18 10/07/18 History folic acid 1 mg PO DAILY 10/07/18 10/07/18 History furosemide 20 mg PO DAILY 10/07/18 10/07/18 History glipizide 10 mg PO BID 10/07/18 10/07/18 History insulin lispro [Humalog U-100 1 sliding scale dose SUBCUT UD 10/07/18 10/07/18 History Insulin] ipratropium-albuterol 3 ml INHALATION Q6-8H PRN 10/07/18 10/07/18 History levothyroxine 50 mcg PO DAILY 10/07/18 10/07/18 History memantine 10 mg PO BID 10/07/18 10/07/18 History metformin 500 mg PO BID 10/07/18 10/07/18 History omeprazole 20 mg PO DAILY 10/07/18 10/07/18 History ondansetron HCl [Zofran] 4 mg PO TID-QID PRN 10/07/18 10/07/18 History pravastatin 10 mg PO DAILY 10/07/18 10/07/18 History pravastatin 10 mg PO DAILY 10/07/18 10/07/18 History prednisone 20 mg PO DAILY 10/07/18 10/07/18 History rivastigmine 4.6 mg TRANSDERMAL DAILY 10/07/18 10/07/18 History tiotropium bromide 1 cap INHALATION DAILY 10/07/18 10/07/18 History venlafaxine 75 mg PO BID 10/07/18 10/07/18 History Active Medications: Active Medications Acetaminophen (Tylenol) 650 mg PO Q4H PRN PRN Reason: Temp > 100.4 Al Hydroxide/Mg Hydroxide (Milk Of Magnesia Liq) 30 ml PO Q12H PRN PRN Reason: Mild Constipation Albuterol (Duoneb Neb (Prn)) ampul NEB Q6-8H PRN PRN Reason: Wheezing Apixaban (Eliquis) 5 mg PO BID [facility] Aspirin (Ecotrin) 81 mg PO DAILY LAURA Bisacodyl (Dulcolax Supp) 10 mg RECTAL DAILY PRN PRN Reason: SEVERE CONSITIPATION Digoxin (Lanoxin) 250 mcg PO DAILY LAURA Furosemide (Lasix) 20 mg PO DAILY [facility] Levofloxacin/Dextrose (Levaquin 750 Mg Premix Inj) 150 mls @ 100 mls/hr IV.SIG Q24H LAURA Lactulose (Lactulose Liq) 30 ml PO DAILY PRN PRN Reason: SEVERE CONSITIPATION Levothyroxine Sodium (Synthroid) 50 mcg PO DAILY [facility]URA Memantine (Namenda) 10 mg PO BID [facility] Metformin HCl (Glucophage) 500 mg PO BID [facility] Non-Formulary Medication (Omeprazole [Omeprazole]) 20 mg PO DAILY [facility] Non-Formulary Medication (Venlafaxine [Venlafaxine]) 75 mg PO BID [facility] Non-Formulary Medication (Diltiazem Hcl [Diltiazem Hcl]) 180 mg PO DAILY [facility] Ondansetron HCl (Zofran Inj) 4 mg IV.PUSH Q6H PRN PRN Reason: NAUSEA OR VOMITING Prednisone (Deltasone) 20 mg PO DAILY [facility] Rivastigmine (Exelon 4.6 Mg Patch.24hr) patch T-DERMAL DAILY [facility] Sennosides (Senokot) 17.2 mg PO Q12H PRN PRN Reason: Moderate Constipation Sodium Chloride (Ns Flush) 2 ml IV.FLUSH PRN PRN PRN Reason: FLUSH AFTER USING IV ACCESS Sodium Chloride (Ns Flush) 2 ml IV.FLUSH PRN PRN PRN Reason: FLUSH AFTER USING IV ACCESS Sodium Chloride (Ns Flush) 2 ml IV.FLUSH BID [facility] Tiotropium [place] (Spiriva 18 Mcg Inh) mcg INH DAILY [facility] Physical Exam Vital signs: Last Vital Signs Temp 100.9 F H 10/07/18 14:28 Pulse 67 10/07/18 15:43 Resp 22 10/07/18 15:43 BP 143/74 H 10/07/18 15:43 Pulse Ox 92 L 10/07/18 15:43 Intake & Output 10/05/18 10/06/18 10/07/18 10/08/18 06:59 06:59 06:59 06:59 Intake Total 1000 / 1000 Balance 1000 / 1000 Weight 99.79 kg Narrative: GENERAL: AAOx1, no acute distress, adequate nutrition, mostly deaf, generalized weakness SKIN: Warm and dry, no rashes. HEAD: Atraumatic. Normocephalic. EYES: Pupils equal, round, reactive to light. No scleral icterus. No injection or drainage. ENT: No nasal bleeding or discharge. Moist mucous membranes. Nonerythematous oropharynx. NECK: Trachea midline. No JVD. Thyroid size within normal limits. CARDIOVASCULAR: Regular rate and rhythm. No murmur, no gallops, no rubs. RESPIRATORY: Clear and equal to auscultation bilaterally. Atelectasis in bilateral bases. No accessory muscle use. GASTROINTESTINAL: Abdomen soft, non-tender, nondistended, normal active bowel sounds. Hepatic and splenic margins not palpable. MUSCULOSKELETAL: Extremities without clubbing or cyanosis. No obvious deformities. No edema. NEUROLOGICAL: Awake and alert. No obvious cranial nerve deficits. Motor grossly within normal limits. No focal deficits. Five out of 5 muscle strength in the arms and legs. Normal speech. PSYCHIATRIC: Appropriate mood and affect; insight and judgment impaired by dementia Results Labs CBC & Chem 7: 10/07/18 14:58 10/07/18 14:58 Imaging Impressions Chest X-Ray 10/07/18 14:28 CONCLUSION: Cardiomegaly. Caprini VTE Risk Assessment Caprini VTE Risk Assessment: Moderate/High Risk (score >= 2) Caprini Risk Assessment Model: Point Value = 1 Point Value = 2 Point Value = 3 Point Value = 5 Age 41-60 Minor surgery BMI > 25 kg/m2 Swollen legs Varicose veins or History of unexplained or recurrent spontaneous Oral contraceptives or hormone replacement Sepsis (< 1 month) Serious lung disease, including pneumonia (< 1 month) Abnormal pulmonary function Acute myocardial infarction Congestive heart failure (< 1 month) History of inflammatory bowel disease Medical patient at bed rest Age 61-74 Arthroscopic surgery Major open surgery (> 45 min) Laparoscopic surgery (> 45 min) Malignancy Confined to bed (> 72 hours) Immobilizing plaster cast Central venous access Age >= 75 History of VTE Family history of VTE Factor V Leiden Prothrombin [id number] Lupus anticoagulant Anticardiolipin antibodies Elevated serum homocysteine Heparin-induced thrombocytopenia Other congenital or acquired thrombophilia Stroke (< 1 month) Elective arthroplasty Hip, pelvis, or leg fracture Acute spinal cord injury (< 1 month) Prophylaxis Regimen: Total Risk Factor Score Risk Level Prophylaxis Regimen 0-1 Low Early ambulation 2 Moderate Order ONE of the following: *Sequential Compression Device (SCD) *Heparin 5000 units SQ BID 3-4 Higher Order ONE of the following medications: *Heparin 5000 units SQ TID *Enoxaparin/Lovenox 40 mg SQ daily (WT < 150 kg, CrCl > 30 mL/min) *Enoxaparin/Lovenox 30 mg SQ daily (WT < 150 kg, CrCl > 10-29 mL/min) *Enoxaparin/Lovenox 30 mg SQ BID (WT < 150 kg, CrCl > 30 mL/min) AND/OR *Sequential Compression Device (SCD) 5 or more Highest Order ONE of the following medications: *Heparin 5000 units SQ TID (Preferred with Epidurals) *Enoxaparin/Lovenox 40 mg SQ daily (WT < 150 kg, CrCl > 30 mL/min) *Enoxaparin/Lovenox 30 mg SQ daily (WT < 150 kg, CrCl > 10-29 mL/min) *Enoxaparin/Lovenox 30 mg SQ BID (WT < 150 kg, CrCl > 30 mL/min) AND *Sequential Compression Device (SCD) Assessment and Plan Plan Bronchopneumonia, sepsis risk Patient presents after 3 weeks of ongoing fever, green phlegm production, lactic acid elevation in ER Failure of outpatient treatment with p.o. ciprofloxacin Started on Levaquin 750 mg IV, will continue Monitor for signs of deterioration Type 2 diabetes Accu-Cheks with sliding scale insulin coverage Diabetic diet h/o CVA, pulmonary embolism Continue on Eliquis h/o CHF, COPD Continue daily Lasix Continue inhaled nebulizers both scheduled and as needed h/o hypothyroidism Continue levothyroxine DVT prophylaxis Eliquis
[2018-10-08 05:37] LABS: Baso % (Auto) 0.3 % (0.0-2.0); Eos % (Auto) 0.1 % (0.0-4.0); Hematocrit 40.5 % (39.0-51.0); Hemoglobin 14.1 gm/dL (13.0-17.0); Lymph # (Auto) 3.2 th/mm3 (1.0-4.8); Mean Corpuscular HGB Conc 34.9 % (32.0-36.0); Mean Corpuscular Hemoglobin 33.3 pg (27.0-34.0); Mean Corpuscular Volume 95.4 fL (80.0-100.0); Mean Platelet Volume 7.9 fL (7.0-11.0); Mono # (Auto) 0.8 th/mm3 (0.0-0.9); Neut # (Auto) 5.7 th/mm3 (1.8-7.7); Neut % (Auto) 58.6 % (16.0-70.0); Platelet Count 226 th/mm3 (150-450); Red Blood Count 4.24 mil/mm3 (4.50-5.90); Red Cell Distribution Width 13.9 % (11.6-17.2); White Blood Count 9.7 th/mm3 (4.0-11.0)
[2018-10-08 06:03] LABS: Calcium 8.6 mg/dL (8.5-10.1); Carbon Dioxide 26.9 meq/L (21.0-32.0); Potassium 4.1 meq/L (3.5-5.1)
[2018-10-08] MEDS: Levothyroxine 50 MCG Tablet PO SCH (06:11)
--- NOTE | 2018-10-08 08:51 | P.PN ---
Subjective Interval history: Follow-up for pneumonia, weakness. Patient is awoken from his sleep. He makes eye contact, but does not answer any questions. RN reports patient has been irritable this morning and just wants to sleep. He has been witnessed coughing. He does not verbalize any medical complaints. Physical Exam Vital signs: Vital Signs 10/07/18 14:28 10/07/18 15:43 10/07/18 20:00 Temperature 100.9 F H 98.3 F Pulse Rate 83 67 68 Respiratory Rate 18 Blood Pressure 140/70 143/74 H 118/60 Pulse Oximetry 96 92 L 95 10/08/18 00:00 10/08/18 03:51 10/08/18 07:24 Temperature 98.3 F 97.7 F 98.4 F Pulse Rate 70 80 74 Respiratory Rate 19 18 12 Blood Pressure 139/67 146/79 H 163/84 H Pulse Oximetry 97 97 97 Intake & Output 10/07/18 10/08/18 10/08/18 18:59 06:59 18:59 Intake Total 1100 / 1100 480 / 480 Output Total 825 / 825 Balance 1100 / 1100 -345 / -345 Weight 99.79 kg 100.5 kg Intake: IV 1100 / 1100 Levaquin 500 mg Premix Inj 500 100 / 100 mg In 100 ml @ 100 mls/hr IV. SIG ONCE ONE Rx#:[id number] NS Inj 1,000 ML @ 1000 mls/hr 1000 / 1000 IV.SIG BOLUS LAURA Rx#:[id number] Oral 480 / 480 Output: Urine 825 / 825 Other: # Bowel Movements 0 Weight On Admission 99.79 kg Narrative: GENERAL: Well-nourished, well-developed elderly male patient in [facility]. Suspected hard of hearing. SKIN: Warm and dry. No rash. HEENT: Normocephalic. Atraumatic. Pupils equal and round. Mucous membranes pink and moist. NECK: Supple. Trachea midline. CARDIOVASCULAR: Regular rate and rhythm. No murmur appreciated. RESPIRATORY: No accessory muscle use. Breath sounds diminished at bilateral bases with decreased inspiratory effort. Breath sounds equal bilaterally. GASTROINTESTINAL: Abdomen soft, non-tender, nondistended. Normoactive bowel sounds x4. MUSCULOSKELETAL: No obvious deformities. Extremities without clubbing, cyanosis , or edema. NEUROLOGICAL: Awake and alert. No obvious cranial nerve deficits. Slowly moving all extremities with generalized weakness. Unable to assess speech. PSYCHIATRIC: insight and judgment limited Results - Labs CBC & Chem 7: 10/08/18 04:57 10/08/18 04:57 Laboratory Results - last 24 hr 10/07/18 10/07/18 10/07/18 14:50 14:58 14:58 WBC 11.1 H RBC 4.10 L Hgb 13.7 Hct 39.3 MCV 95.8 MCH 33.5 MCHC 35.0 RDW 14.0 Plt Count 249 MPV 8.3 Neut % (Auto) 84.3 H Lymph % (Auto) 10.6 [place] % (Auto) 4.7 Eos % (Auto) 0.1 Baso % (Auto) 0.3 Neut # (Auto) 9.3 H Lymph # (Auto) 1.2 [place] # (Auto) 0.5 Eos # (Auto) 0.0 Baso # (Auto) 0.0 WBC Differential . Differential Comment Auto diff final Sodium 133 L Potassium 4.8 Chloride 101 Carbon Dioxide 23.7 Anion Gap 8 BUN 19 H Creatinine 1.18 Estimated GFR 60 L Random Glucose 141 H Lactic Acid Calcium 8.2 L Magnesium 2.0 Total Bilirubin 0.2 AST 22 ALT 18 Alkaline Phosphatase 31 L Troponin I Less than 0.02 L B-Natriuretic Peptide Total Protein 7.1 Albumin 3.1 L Urine Color Straw Urine Clarity Clear Urine pH 7.0 Ur Specific [place] 1.008 Urine Protein Negative Urine Glucose (UA) Negative Urine Ketones Negative Urine Occult Blood Negative Urine Nitrate Negative Urine Bilirubin Negative Urine Urobilinogen Less than 2 Ur Leukocyte Esterase Negative Urine RBC Less than 1 Urine WBC Less than 1 Urine Mucus Few H Micro UA Comment Culture not ind Ur Microscopic Review Not Reportable Urine Culture Comments Culture not ind 10/07/18 10/07/18 10/08/18 14:58 14:58 04:57 WBC 9.7 RBC 4.24 L Hgb 14.1 Hct 40.5 MCV 95.4 MCH 33.3 MCHC 34.9 RDW 13.9 Plt Count 226 MPV 7.9 Neut % (Auto) 58.6 Lymph % (Auto) 33.0 [place] % (Auto) 8.0 Eos % (Auto) 0.1 Baso % (Auto) 0.3 Neut # (Auto) 5.7 Lymph # (Auto) 3.2 [place] # (Auto) 0.8 Eos # (Auto) 0.0 Baso # (Auto) 0.0 WBC Differential . Differential Comment Auto diff final Sodium Potassium Chloride Carbon Dioxide Anion Gap BUN Creatinine Estimated GFR Random Glucose Lactic Acid 2.9 H Calcium Magnesium Total Bilirubin AST ALT Alkaline Phosphatase Troponin I B-Natriuretic Peptide 190 H Total Protein Albumin Urine Color Urine Clarity Urine pH Ur Specific [place] Urine Protein Urine Glucose (UA) Urine Ketones Urine Occult Blood Urine Nitrate Urine Bilirubin Urine Urobilinogen Ur Leukocyte Esterase Urine RBC Urine WBC Urine Mucus Micro UA Comment Ur Microscopic Review Urine Culture Comments 10/08/18 04:57 WBC RBC Hgb Hct MCV MCH MCHC RDW Plt Count MPV Neut % (Auto) Lymph % (Auto) [place] % (Auto) Eos % (Auto) Baso % (Auto) Neut # (Auto) Lymph # (Auto) [place] # (Auto) Eos # (Auto) Baso # (Auto) WBC Differential Differential Comment Sodium 136 Potassium 4.1 Chloride 101 Carbon Dioxide 26.9 Anion Gap 8 BUN 17 Creatinine 1.11 Estimated GFR 64 L Random Glucose 107 H Lactic Acid Calcium 8.6 Magnesium Total Bilirubin AST ALT Alkaline Phosphatase Troponin I B-Natriuretic Peptide Total Protein Albumin Urine Color Urine Clarity Urine pH Ur Specific [place] Urine Protein Urine Glucose (UA) Urine Ketones Urine Occult Blood Urine Nitrate Urine Bilirubin Urine Urobilinogen Ur Leukocyte Esterase Urine RBC Urine WBC Urine Mucus Micro UA Comment Ur Microscopic Review Urine Culture Comments Microbiology 10/07/18 14:58 Nasal Wash Influenza Types A,B Antigen - Final Negative for FLU A and B antigen Infection due to influenza A or B cannot be ruled out since the antigen present in the sample may be below the detection limit of the test. - Imaging Impressions Chest X-Ray 10/07/18 14:28 CONCLUSION: Cardiomegaly. Assessment and Plan - Plan 78-year-old male with history of type 2 diabetes, dementia, CVA, DVT/PE, atrial fibrillation, presents to the ER following 3 weeks of ongoing fever associated with upper respiratory symptoms that include large amounts of green phlegm coughed up daily. Sepsis with Community-acquired pneumonia, failed outpatient: Acute, reported 3 weeks of fever, URI, cough with green sputum. On Cipro x3 days as outpatient with no improvement. -Meets sepsis with +leukocytosis, fever 100.9, tachypnea RR 22, lactic acid 2.9, suspect source-pneumonia -influenza negative -Collect sputum culture -Check urinary legionella/pneumococcal antien -Blood cultures with NGTD -S/p IVF bolus, caution with fluid overload -Continue antibiotics with IV Levaquin -duonebs prn -Monitor for improvement Generalized Weakness: suspect multifactorial with chronic deconditioning, dementia, in combination with acute infection -supportive treatment -encourage oral intake -consult PT Diabetes Mellitus: chronic -continue patient's metformin, holding glipizide for now with decreased oral intake -monitor Accu-checks, cover with SSI -hypoglycemia protocol Hx of CVA: chronic -continue patient's aspirin and eliquis Hx of DVT/PE: chronic -continue patient's eliquis Atrial Fibrillation: chronic, rate controlled -EKG reviewed, shows afib with ventricular rate 77 -continue patient's eliquis, digoxin, diltiazem -monitor on telemetry Hypothyroidism: chronic -continue patient's levothyroxine Dementia: chronic -continue patient's namenda DVT Prophylaxis: on Eliquis
[2018-10-08] MEDS: Venlafaxine XR 75 MG Capsule PO SCH (09:37)
[2018-10-08] MEDS: dilTIAZem CD 180 MG Capsule PO SCH (09:38)
[2018-10-08] MEDS: Pantoprazole Sodium 20 MG DR Tablet PO SCH (09:38)
[2018-10-08] MEDS: Furosemide 20 MG Tablet PO SCH (09:38)
[2018-10-08] MEDS: predniSONE 20 MG Tablet PO SCH (09:38)
[2018-10-08] MEDS: Digoxin 250 MCG Tablet PO SCH (09:38)
[2018-10-08] MEDS: Tiotropium Bromide 18 MCG/ACT Inhaler INH SCH (09:49)
[2018-10-08] MEDS ORDERED: Dextrose 50% in Water 50 ML Vial IV.PUSH PRN (14:50)
[2018-10-08] MEDS: Insulin NovoLOG Aspart Correctional Sugar Inj SQ SCH ×2 (18:08→21:40)
--- NOTE | 2018-10-09 01:22 | ECG ---
Date Performed: 10/07/2018 Time Performed: 14:31:22 PTAGE: 78 years EKG: ATRIAL FIBRILLATION NONSPECIFIC ST & T-WAVE ABNORMALITY ABNORMAL RHYTHM ECG INTERPRETATION BASED ON A DEFAULT AGE OF 40 YEARS PREVIOUS TRACING : 03/28/2018 02.20 Since the previous tracing, no significant change not ed DOCTOR: Severino Lund Interpretating Date/Time 10/09/2018 01:21:50
[2018-10-09] MEDS: Levothyroxine 50 MCG Tablet PO SCH (06:02)
[2018-10-09] MEDS: Insulin NovoLOG Aspart Correctional Sugar Inj SQ SCH ×4 (08:42→21:58)
[2018-10-09] MEDS: predniSONE 20 MG Tablet PO SCH (08:45)
[2018-10-09] MEDS: Acetaminophen 325 MG Tablet PO PRN (08:45)
[2018-10-09] MEDS: Venlafaxine XR 75 MG Capsule PO SCH (08:46)
[2018-10-09] MEDS: Furosemide 20 MG Tablet PO SCH (08:48)
[2018-10-09] MEDS: Pantoprazole Sodium 20 MG DR Tablet PO SCH (08:48)
[2018-10-09] MEDS: Digoxin 250 MCG Tablet PO SCH (08:53)
[2018-10-09] MEDS: dilTIAZem CD 180 MG Capsule PO SCH (10:34)
[2018-10-09] MEDS: Tiotropium Bromide 18 MCG/ACT Inhaler INH SCH (10:34)
--- NOTE | 2018-10-09 14:09 | P.PN ---
Subjective Interval history: Follow-up for pneumonia, weakness. Patient is sleeping upon my arrival, awakens to voice. He is very hard of hearing and therefore difficult to communicate with. Patient denies any fevers or chills overnight. He denies any recent cough or shortness of breath. Denies any chest pain. He admits to feeling weak and has not attempted ambulation today. He has no other new medical complaints at this time. Physical Exam Vital signs: Vital Signs 10/08/18 16:00 10/08/18 20:00 10/09/18 00:00 Temperature 97.9 F 98.5 F 98.5 F Pulse Rate 61 71 64 Respiratory Rate 16 18 17 Blood Pressure 143/71 H 149/71 H 177/83 H Pulse Oximetry 90 L 98 97 10/09/18 03:29 10/09/18 09:01 10/09/18 11:59 Temperature 98.4 F 98.1 F 97.9 F Pulse Rate 71 67 78 Respiratory Rate 16 16 18 Blood Pressure 135/68 143/79 H 135/84 Pulse Oximetry 98 97 99 Intake & Output 10/08/18 10/09/18 10/09/18 18:59 06:59 18:59 Intake Total 800 / 800 960 / 960 Output Total 1125 / 1125 Balance 800 / 800 -165 / -165 Weight 100.5 kg Intake: IV 150 / 150 Levaquin 750 mg Premix Inj 150 150 / 150 ML @ 100 mls/hr IV.SIG Q24H [facility] Rx#:[id number] Oral 650 / 650 960 / 960 Output: Urine 1125 / 1125 Other: # Voids 2 3 Date of Last Bowel Movement 10/04/18 10/04/18 10/09/18 # Bowel Movements 0 Narrative: GENERAL: Well-nourished, well-developed elderly male patient in [facility]. Hard of hearing. SKIN: Warm and dry. No rash. HEENT: Normocephalic. Atraumatic. Pupils equal and round. Mucous membranes pink and moist. CARDIOVASCULAR: Regular rate and rhythm. No murmur appreciated. RESPIRATORY: No accessory muscle use. Breath sounds diminished at bilateral bases with decreased inspiratory effort. Breath sounds equal bilaterally. GASTROINTESTINAL: Abdomen soft, non-tender, nondistended. Normoactive bowel sounds x4. MUSCULOSKELETAL: No obvious deformities. Extremities without clubbing, cyanosis , or edema. NEUROLOGICAL: Awake and alert. No obvious cranial nerve deficits. Slowly moving all extremities with generalized weakness. Normal speech. PSYCHIATRIC: insight and judgment limited Results - Labs CBC & Chem 7: 10/08/18 04:57 10/08/18 04:57 Laboratory Results - last 24 hr 10/08/18 10/09/18 10/09/18 17:58 08:42 12:21 POC Glucose 213 H 112 H 195 H Microbiology 10/07/18 14:58 Blood - Line Aerobic Blood Culture - Preliminary No growth in 2 days 10/07/18 14:58 Blood - Line Anaerobic Blood Culture - Preliminary No growth in 2 days 10/07/18 14:50 Blood - Line Aerobic Blood Culture - Preliminary No growth in 2 days 10/07/18 14:50 Blood - Line Anaerobic Blood Culture - Preliminary No growth in 2 days 10/08/18 15:34 Urine - Random Urine Streptococcus pneumoniae Antigen (M - Final Presumptive negative for streptococcus pneumoniae antigen, suggesting no current or recent infection. Infection due to Streptococcus pneumoniae cannot be ruled out since the antigen present in the sample may be below the detection limit of the test. 10/08/18 15:34 Urine - Random Urine Legionella Antigen - Final Presumptive negative for Legionella pneumophila serogroup 1 antigen in urine, suggesting no recent or recurrent infection. Infection due to Legionella cannot be ruled out since other serogroups and species may cause disease, antigen may not be present in urine in early infection, and the level of antigen present in the urine may be below the detection limit of the test. 10/08/18 22:44 Sputum - Expectorated Sputum Gram Stain - Final - Imaging Chest X-Ray 10/07/18 14:28 CONCLUSION: Cardiomegaly. Assessment and Plan - Plan 78-year-old male with history of type 2 diabetes, dementia, CVA, DVT/PE, atrial fibrillation, presents to the ER following 3 weeks of ongoing fever associated with upper respiratory symptoms that include large amounts of green phlegm coughed up daily. Sepsis with Community-acquired pneumonia, failed outpatient: Acute, reported 3 weeks of fever, URI, cough with green sputum. On Cipro x3 days as outpatient with no improvement. -Meets sepsis with +leukocytosis, fever 100.9, tachypnea RR 22, lactic acid 2.9, suspect source-pneumonia -influenza negative -Sputum culture pending -Urinary legionella/pneumococcal antigen negative -Blood cultures with NGTD -S/p IVF bolus, caution with fluid overload -Continue antibiotics with IV Levaquin -duonebs prn -Monitor for improvement, leukocytosis improved Generalized Weakness: suspect multifactorial with chronic deconditioning, dementia, in combination with acute infection -supportive treatment -encourage oral intake -consult PT, recommending rehab, patient reportedly from [facility] Diabetes Mellitus: chronic -continue patient's metformin, holding glipizide for now with decreased oral intake -monitor Accu-checks, cover with SSI -hypoglycemia protocol Hx of CVA: chronic -continue patient's aspirin and eliquis Hx of DVT/PE: chronic -continue patient's eliquis Atrial Fibrillation: chronic, rate controlled -EKG reviewed, shows afib with ventricular rate 77 -continue patient's eliquis, digoxin, diltiazem -monitor on telemetry Hypothyroidism: chronic -continue patient's levothyroxine Dementia: chronic -continue patient's namenda DVT Prophylaxis: on Eliquis Discharge Planning: Plan to discharge back to [facility] once clinically improved. Still very drowsy and weak secondary to infection. Hopefully discharge back to rehab in the next 1-2 days.
[2018-10-10] MEDS: Levothyroxine 50 MCG Tablet PO SCH (06:10)
[2018-10-10 07:36] LABS: Baso # (Auto) 0.1 th/mm3 (0.0-0.2); Baso % (Auto) 0.6 % (0.0-2.0); Eos # (Auto) 0.1 th/mm3 (0.0-0.4); Eos % (Auto) 0.5 % (0.0-4.0); Hematocrit 42.2 % (39.0-51.0); Hemoglobin 14.5 gm/dL (13.0-17.0); Lymph # (Auto) 3.6 th/mm3 (1.0-4.8); Lymph % (Auto) 29.3 % (9.0-44.0); Mean Corpuscular HGB Conc 34.4 % (32.0-36.0); Mean Corpuscular Hemoglobin 32.8 pg (27.0-34.0); Mean Corpuscular Volume 95.3 fL (80.0-100.0); Mean Platelet Volume 7.7 fL (7.0-11.0); Mono # (Auto) 0.8 th/mm3 (0.0-0.9); Neut # (Auto) 7.6 th/mm3 (1.8-7.7); Neut % (Auto) 62.6 % (16.0-70.0); Platelet Count 260 th/mm3 (150-450); Red Blood Count 4.42 mil/mm3 (4.50-5.90); Red Cell Distribution Width 13.6 % (11.6-17.2); White Blood Count 12.2 th/mm3 (4.0-11.0)
[2018-10-10 07:49] LABS: Carbon Dioxide 22.5 meq/L (21.0-32.0); Potassium 4.4 meq/L (3.5-5.1)
[2018-10-10] MEDS: Insulin NovoLOG Aspart Correctional Sugar Inj SQ SCH ×4 (10:09→20:51)
[2018-10-10] MEDS: Pantoprazole Sodium 20 MG DR Tablet PO SCH (10:30)
[2018-10-10] MEDS: Venlafaxine XR 75 MG Capsule PO SCH (10:30)
[2018-10-10] MEDS: dilTIAZem CD 180 MG Capsule PO SCH (10:30)
[2018-10-10] MEDS: Digoxin 250 MCG Tablet PO SCH (10:30)
[2018-10-10] MEDS: Tiotropium Bromide 18 MCG/ACT Inhaler INH SCH (10:31)
[2018-10-10] MEDS: Furosemide 20 MG Tablet PO SCH (10:31)
[2018-10-10] MEDS: predniSONE 20 MG Tablet PO SCH (10:31)
--- NOTE | 2018-10-10 15:19 | P.PNIM ---
Subjective Interval history: Patient seen lying quietly in bed. Still weak and tired but feeling somewhat better. No fever or chills. No nausea vomiting or or new shortness of breath. Physical Exam Vital signs: Last Vital Signs Temp 98.4 F 10/10/18 12:19 Pulse 53 L 10/10/18 12:19 Resp 16 10/10/18 12:19 BP 137/65 10/10/18 12:19 Pulse Ox 95 10/10/18 12:19 Intake & Output 10/08/18 10/09/18 10/10/18 10/11/18 06:59 06:59 06:59 06:59 Intake Total 1580 / 1580 1760 / 1760 150 / 150 Output Total 825 / 825 1125 / 1125 550 / 550 Balance 755 / 755 635 / 635 -400 / -400 Weight 100.5 kg 100.5 kg Narrative: GENERAL: Well-nourished, well-developed elderly male patient in [facility]. Hard of hearing. SKIN: Warm and dry. No rash. HEENT: Normocephalic. Atraumatic. Mucous membranes pink and moist. CARDIOVASCULAR: Regular rate and rhythm. RESPIRATORY: No accessory muscle use. Breath sounds diminished at bilateral bases with decreased inspiratory effort. Breath sounds equal bilaterally. GASTROINTESTINAL: Abdomen soft, non-tender, nondistended. Normoactive bowel sounds x4. MUSCULOSKELETAL: No obvious deformities. Extremities without clubbing, cyanosis , or edema. NEUROLOGICAL: Awake and alert. No obvious cranial nerve deficits. Slowly moving all extremities with generalized weakness. Normal speech. PSYCHIATRIC: insight and judgment limited Results Labs CBC & Chem 7: 10/10/18 06:00 10/10/18 06:00 Labs: Microbiology 10/08/18 22:44 Sputum - Expectorated Sputum Gram Stain - Final 10/08/18 22:44 Sputum - Expectorated Sputum Sputum Culture - Preliminary Moderate growth normal respiratory mary at 24 hours 10/07/18 14:58 Blood - Line Aerobic Blood Culture - Preliminary No growth in 3 days 10/07/18 14:58 Blood - Line Anaerobic Blood Culture - Preliminary No growth in 3 days 10/07/18 14:50 Blood - Line Aerobic Blood Culture - Preliminary No growth in 3 days 10/07/18 14:50 Blood - Line Anaerobic Blood Culture - Preliminary No growth in 3 days Assessment and Plan Plan 78-year-old male with history of type 2 diabetes, dementia, CVA, DVT/PE, atrial fibrillation, presents to the ER following 3 weeks of ongoing fever associated with upper respiratory symptoms that include large amounts of green phlegm coughed up daily. Sepsis with Community-acquired pneumonia, failed outpatient: Acute, reported 3 weeks of fever, URI, cough with green sputum. On Cipro x3 days as outpatient with no improvement. -Meets sepsis with +leukocytosis, fever 100.9, tachypnea RR 22, lactic acid 2.9, suspect source-pneumonia -influenza negative -Sputum culture pending -Urinary legionella/pneumococcal antigen negative -Blood cultures with NGTD -S/p IVF bolus, caution with fluid overload -Continue antibiotics with IV Levaquin -duonebs prn -Monitor for improvement, leukocytosis improved Generalized Weakness: suspect multifactorial with chronic deconditioning, dementia, in combination with acute infection -supportive treatment -encourage oral intake -consult PT, recommending rehab, patient reportedly from [facility] Diabetes Mellitus: chronic -continue patient's metformin, holding glipizide for now with decreased oral intake -monitor Accu-checks, cover with SSI -hypoglycemia protocol Hx of CVA: chronic -continue patient's aspirin and eliquis Hx of DVT/PE: chronic -continue patient's eliquis Atrial Fibrillation: chronic, rate controlled -EKG reviewed, shows afib with ventricular rate 77 -continue patient's eliquis, digoxin, diltiazem -monitor on telemetry Hypothyroidism: chronic -continue patient's levothyroxine Dementia: chronic -continue patient's namenda DVT Prophylaxis: on Eliquis Discharge Planning: Plan to discharge back to [facility] once clinically improved. Progress Note: Quality VTE Deep Vein Thrombosis/Pulmonary Embolism Present on Admission: No
[2018-10-11] MEDS: traMADol/Acetaminophen 37.5/325 MG Tablet PO PRN (01:49)
[2018-10-11] MEDS: Levothyroxine 50 MCG Tablet PO SCH (05:57)
[2018-10-11 06:46] LABS: Baso # (Auto) 0.1 th/mm3 (0.0-0.2); Baso % (Auto) 0.5 % (0.0-2.0); Eos # (Auto) 0.1 th/mm3 (0.0-0.4); Eos % (Auto) 0.4 % (0.0-4.0); Hematocrit 44.9 % (39.0-51.0); Hemoglobin 15.7 gm/dL (13.0-17.0); Lymph % (Auto) 27.2 % (9.0-44.0); Mean Corpuscular Hemoglobin 33.5 pg (27.0-34.0); Mean Corpuscular Volume 95.8 fL (80.0-100.0); Mean Platelet Volume 7.7 fL (7.0-11.0); Mono # (Auto) 0.9 th/mm3 (0.0-0.9); Mono % (Auto) 6.3 % (0.0-8.0); Neut # (Auto) 9.6 th/mm3 (1.8-7.7); Neut % (Auto) 65.6 % (16.0-70.0); Platelet Count 293 th/mm3 (150-450); Red Blood Count 4.69 mil/mm3 (4.50-5.90); Red Cell Distribution Width 13.9 % (11.6-17.2); White Blood Count 14.6 th/mm3 (4.0-11.0)
[2018-10-11 07:13] LABS: Calcium 9.7 mg/dL (8.5-10.1); Carbon Dioxide 28.5 meq/L (21.0-32.0); Potassium 4.2 meq/L (3.5-5.1)
[2018-10-11] MEDS: Insulin NovoLOG Aspart Correctional Sugar Inj SQ SCH ×4 (08:00→21:32)
[2018-10-11] MEDS: dilTIAZem CD 180 MG Capsule PO SCH (10:15)
[2018-10-11] MEDS: Furosemide 20 MG Tablet PO SCH (10:16)
[2018-10-11] MEDS: Venlafaxine XR 75 MG Capsule PO SCH (10:16)
[2018-10-11] MEDS: predniSONE 20 MG Tablet PO SCH (10:17)
[2018-10-11] MEDS: Pantoprazole Sodium 20 MG DR Tablet PO SCH (10:17)
[2018-10-11] MEDS: Piperacil/Tazo 3.375 GM Premix 3.375 GM/50 ML PIGGYBACK IV.SIG SCH ×2 (10:17→22:59)
[2018-10-11] MEDS: Digoxin 250 MCG Tablet PO SCH (10:17)
[2018-10-11] MEDS: Tiotropium Bromide 18 MCG/ACT Inhaler INH SCH (12:36)
--- NOTE | 2018-10-11 12:38 | XR ---
EXAM DATE: 10/11/2018 12:27 PM EST AGE/SEX: 78 years / Male INDICATIONS: Congestion. CLINICAL DATA: This is the patient's subsequent encounter. Patient reports that signs and symptoms h ave been present for 4 - 6 days and indicates a pain score of 0/10. MEDICAL/SURGICAL HISTORY: . Osteoarthritis. Chronic obstructive pulmonary disease. Renal calcul i. Hypothyroidism. Peripheral neuropathy. Aneurysm. AFib. UTI. HTN. Diabetes. MRSA. . Tonsillectomy. Appendectomy. Rectum surgery. Cystoscopy with stent placement. Right knee surgery. Rotator cuff repa ir x2. Spinal fusion L5. COMPARISON: [facility] [place], CHEST SINGLE AP, 03/28/2018. . FINDINGS: The heart is enlarged. The pulmonary vascular pattern is normal. The lungs are clear. CONCLUSION: 1. Cardiomegaly. 2. No focal infiltrate or pulmonary vascular congestion. Electronically signed by: Dago Lombardi MD Board Certified Radiologist 10/11/2018 12:37 PM EST
[2018-10-11 14:03] LABS: Bilirubin,Urine Negative (Negative); Clarity,Urine Clear (Clear); Color,Urine Straw (Yellw/Straw); Glucose,Urine (UA) Negative (Negative); Leukocyte Esterase,Urine Negative (Negative); Nitrite,Urine Negative (Negative); Specific Gravity,Urine 1.008 (1.002-1.035)
--- NOTE | 2018-10-11 17:09 | P.PNIM ---
Subjective Interval history: Patient seen lying in bed. Reports his breathing is somewhat better. No nausea vomiting or diarrhea. Still says he is weak. complaining of all over body pain -reports that he usually takes pain medicine daily But does not remember what it is. Physical Exam Vital signs: Last Vital Signs Temp 99.1 F 10/11/18 15:11 Pulse 69 10/11/18 15:11 Resp 12 10/11/18 15:11 BP 111/56 L 10/11/18 15:11 Pulse Ox 98 10/11/18 15:11 Intake & Output 10/09/18 10/10/18 10/11/18 10/12/18 06:59 06:59 06:59 06:59 Intake Total 1760 / 1760 150 / 150 150 / 150 50 / 50 Output Total 1125 / 1125 550 / 550 Balance 635 / 635 -400 / -400 150 / 150 50 / 50 Weight 100.5 kg Narrative: GENERAL: Well-nourished, well-developed elderly male patient in [facility]. Hard of hearing. SKIN: Warm and dry. No rash. HEENT: Normocephalic. Atraumatic. Mucous membranes pink and moist. CARDIOVASCULAR: Regular rate and rhythm. RESPIRATORY: No accessory muscle use. Breath sounds diminished at bilateral bases with decreased inspiratory effort. Breath sounds equal bilaterally. GASTROINTESTINAL: Abdomen soft, non-tender, nondistended. Normoactive bowel sounds x4. MUSCULOSKELETAL: No obvious deformities. Extremities without clubbing, cyanosis , or edema. NEUROLOGICAL: Awake and alert. No obvious cranial nerve deficits. Slowly moving all extremities with generalized weakness. Normal speech. PSYCHIATRIC: insight and judgment limited Results Labs CBC & Chem 7: 10/12/18 07:10 10/11/18 06:21 Labs: Microbiology 10/08/18 22:44 Sputum - Expectorated Sputum Gram Stain - Final 10/08/18 22:44 Sputum - Expectorated Sputum Sputum Culture - Final Moderate growth normal respiratory mary 10/07/18 14:58 Blood - Line Aerobic Blood Culture - Preliminary No growth in 4 days 10/07/18 14:58 Blood - Line Anaerobic Blood Culture - Preliminary No growth in 4 days 10/07/18 14:50 Blood - Line Aerobic Blood Culture - Preliminary No growth in 4 days 10/07/18 14:50 Blood - Line Anaerobic Blood Culture - Preliminary No growth in 4 days Imaging Imaging: Impressions Chest X-Ray 10/11/18 00:00 CONCLUSION: 1. Cardiomegaly. 2. No focal infiltrate or pulmonary vascular congestion. Assessment and Plan Plan 78-year-old male with history of type 2 diabetes, dementia, CVA, DVT/PE, atrial fibrillation, presents to the ER following 3 weeks of ongoing fever associated with upper respiratory symptoms that include large amounts of green phlegm coughed up daily. Sepsis with Community-acquired pneumonia, failed outpatient: Acute, reported 3 weeks of fever, URI, cough with green sputum. On Cipro x3 days as outpatient with no improvement. -Meets sepsis with +leukocytosis, fever 100.9, tachypnea RR 22, lactic acid 2.9, suspect source-pneumonia -influenza negative -Sputum culture- normal respiratory mary -Urinary legionella/pneumococcal antigen negative -Blood cultures with NGTD -S/p IVF bolus, caution with fluid overload -duonebs prn -Continue antibiotics with IV Levaquin (started by admit); added Zosyn on due to increase in WBCs and T99.6. Generalized Weakness: suspect multifactorial with chronic deconditioning, dementia, in combination with acute infection -supportive treatment -encourage oral intake -consult PT, recommending rehab, patient reportedly from [facility] Diabetes Mellitus: chronic -continue patient's metformin, holding glipizide for now with decreased oral intake -monitor Accu-checks, cover with SSI -hypoglycemia protocol Chronic pain -Medicate as indicated -E-forcse reviewed; patient has consistent prescription of narcotic pain medication. Hx of CVA: chronic -continue patient's aspirin and eliquis Hx of DVT/PE: chronic -continue patient's eliquis Atrial Fibrillation: chronic, rate controlled -EKG reviewed, shows afib with ventricular rate 77 -continue patient's eliquis, digoxin, diltiazem -monitor on telemetry Hypothyroidism: chronic -continue patient's levothyroxine Dementia: chronic -continue patient's namenda DVT Prophylaxis: on Eliquis Discharge Planning: Plan to discharge back to [facility] once clinically improved. Progress Note: Quality VTE Deep Vein Thrombosis/Pulmonary Embolism Present on Admission: No
[2018-10-12] MEDS: Levothyroxine 50 MCG Tablet PO SCH (05:46)
[2018-10-12] MEDS: oxyCODONE/Acetaminophen 10/325 Tablet PO PRN ×2 (05:49→17:53)
[2018-10-12 07:32] LABS: Baso # (Auto) 0.1 th/mm3 (0.0-0.2); Baso % (Auto) 0.6 % (0.0-2.0); Eos % (Auto) 0.2 % (0.0-4.0); Hemoglobin 14.4 gm/dL (13.0-17.0); Lymph # (Auto) 3.8 th/mm3 (1.0-4.8); Lymph % (Auto) 26.4 % (9.0-44.0); Mean Corpuscular HGB Conc 33.5 % (32.0-36.0); Mean Corpuscular Hemoglobin 32.2 pg (27.0-34.0); Mean Corpuscular Volume 96.3 fL (80.0-100.0); Mean Platelet Volume 7.5 fL (7.0-11.0); Mono # (Auto) 1.1 th/mm3 (0.0-0.9); Mono % (Auto) 7.7 % (0.0-8.0); Neut # (Auto) 9.4 th/mm3 (1.8-7.7); Neut % (Auto) 65.1 % (16.0-70.0); Platelet Count 279 th/mm3 (150-450); Red Blood Count 4.46 mil/mm3 (4.50-5.90); White Blood Count 14.5 th/mm3 (4.0-11.0)
[2018-10-12] MEDS: Tiotropium Bromide 18 MCG/ACT Inhaler INH SCH (08:30)
[2018-10-12] MEDS: Furosemide 20 MG Tablet PO SCH (08:30)
[2018-10-12] MEDS: Insulin NovoLOG Aspart Correctional Sugar Inj SQ SCH ×4 (08:30→20:49)
[2018-10-12] MEDS: Digoxin 250 MCG Tablet PO SCH (08:31)
[2018-10-12] MEDS: Venlafaxine XR 75 MG Capsule PO SCH (08:31)
[2018-10-12] MEDS: predniSONE 20 MG Tablet PO SCH (08:31)
[2018-10-12] MEDS: dilTIAZem CD 180 MG Capsule PO SCH (08:31)
[2018-10-12] MEDS: Pantoprazole Sodium 20 MG DR Tablet PO SCH (08:31)
[2018-10-12] MEDS: traMADol/Acetaminophen 37.5/325 MG Tablet PO PRN ×2 (09:57→20:51)
[2018-10-12] MEDS: Piperacil/Tazo 3.375 GM Premix 3.375 GM/50 ML PIGGYBACK IV.SIG SCH ×2 (11:43→23:57)
--- NOTE | 2018-10-12 15:13 | P.PNIM ---
Subjective Interval history: Patient is seen eating his breakfast. Tells me he needs pain meds. Otherwise has no complaints. Physical Exam Vital signs: Last Vital Signs Temp 98.7 F 10/12/18 11:40 Pulse 70 10/12/18 11:40 Resp 20 10/12/18 11:40 BP 108/63 10/12/18 11:40 Pulse Ox 95 10/12/18 11:40 Intake & Output 10/10/18 10/11/18 10/12/18 10/13/18 06:59 06:59 06:59 06:59 Intake Total 150 / 150 150 / 150 730 / 730 50 / 50 Output Total 550 / 550 600 / 600 Balance -400 / -400 150 / 150 130 / 130 50 / 50 Narrative: GENERAL: Well-nourished, well-developed elderly male patient in [facility]. Hard of hearing. SKIN: Warm and dry. No rash. HEENT: Normocephalic. Atraumatic. Mucous membranes pink and moist. CARDIOVASCULAR: Regular rate and rhythm. RESPIRATORY: No accessory muscle use. Breath sounds diminished at bilateral bases. Breath sounds equal bilaterally. GASTROINTESTINAL: Abdomen soft, non-tender, nondistended. Normoactive bowel sounds x4. MUSCULOSKELETAL: No obvious deformities. Extremities without clubbing, cyanosis , or edema. NEUROLOGICAL: Awake and alert. No obvious cranial nerve deficits. Slowly moving all extremities with generalized weakness. Normal speech. PSYCHIATRIC: insight and judgment limited Results Labs CBC & Chem 7: 10/12/18 07:10 10/11/18 06:21 Labs: Microbiology 10/07/18 14:58 Blood - Line Aerobic Blood Culture - Final No growth in 5 days 10/07/18 14:58 Blood - Line Anaerobic Blood Culture - Final No growth in 5 days 10/07/18 14:50 Blood - Line Aerobic Blood Culture - Final No growth in 5 days 10/07/18 14:50 Blood - Line Anaerobic Blood Culture - Final No growth in 5 days 10/08/18 22:44 Sputum - Expectorated Sputum Gram Stain - Final 10/08/18 22:44 Sputum - Expectorated Sputum Sputum Culture - Final Moderate growth normal respiratory mary Assessment and Plan Plan 78-year-old male with history of type 2 diabetes, dementia, CVA, DVT/PE, atrial fibrillation, presents to the ER following 3 weeks of ongoing fever associated with upper respiratory symptoms that include large amounts of green phlegm coughed up daily. Sepsis with Community-acquired pneumonia, failed outpatient: Acute, reported 3 weeks of fever, URI, cough with green sputum. On Cipro x3 days as outpatient with no improvement. -Meets sepsis with +leukocytosis, fever 100.9, tachypnea RR 22, lactic acid 2.9, suspect source-pneumonia -influenza negative -Sputum culture- normal respiratory mary -Urinary legionella/pneumococcal antigen negative -Blood cultures with NGTD -S/p IVF bolus, caution with fluid overload -duonebs prn -Continue antibiotics with IV Levaquin (started by admit); added Zosyn on due to increase in WBCs and T99.6. Now afebrile. Consider that elevated WBCs might also be due to steroid Generalized Weakness: suspect multifactorial with chronic deconditioning, dementia, in combination with acute infection -supportive treatment -encourage oral intake -consult PT, recommending rehab, patient reportedly from [facility] Diabetes Mellitus: chronic -continue patient's metformin, holding glipizide for now with decreased oral intake -monitor Accu-checks, cover with SSI -hypoglycemia protocol Chronic pain -Medicate as indicated -E-forcse reviewed; patient has consistent prescription of narcotic pain medication. Hx of CVA: chronic -continue patient's aspirin and eliquis Hx of DVT/PE: chronic -continue patient's eliquis Atrial Fibrillation: chronic, rate controlled -EKG reviewed, shows afib with ventricular rate 77 -continue patient's eliquis, digoxin, diltiazem -monitor on telemetry Hypothyroidism: chronic -continue patient's levothyroxine Dementia: chronic -continue patient's namenda DVT Prophylaxis: on Eliquis Discharge Planning: Plan to discharge back to [facility] once clinically improved. Progress Note: Quality VTE Deep Vein Thrombosis/Pulmonary Embolism Present on Admission: No
[2018-10-13] MEDS: Levothyroxine 50 MCG Tablet PO SCH (06:09)
[2018-10-13] MEDS: Digoxin 250 MCG Tablet PO SCH (08:52)
[2018-10-13] MEDS: oxyCODONE/Acetaminophen 10/325 Tablet PO PRN ×2 (08:52→19:04)
[2018-10-13] MEDS: dilTIAZem CD 180 MG Capsule PO SCH (08:52)
[2018-10-13] MEDS: predniSONE 20 MG Tablet PO SCH (08:53)
[2018-10-13] MEDS: Venlafaxine XR 75 MG Capsule PO SCH (08:53)
[2018-10-13] MEDS: Pantoprazole Sodium 20 MG DR Tablet PO SCH (08:53)
[2018-10-13] MEDS: Furosemide 20 MG Tablet PO SCH (08:53)
[2018-10-13] MEDS: Tiotropium Bromide 18 MCG/ACT Inhaler INH SCH (08:58)
[2018-10-13] MEDS: Insulin NovoLOG Aspart Correctional Sugar Inj SQ SCH ×4 (09:02→21:58)
--- NOTE | 2018-10-13 10:38 | P.PNIM ---
Subjective Interval history: Follow up pneumonia, sepsis, generalized weakness Patient seen and examined while resting in bed. He reports generalized body aches. He reports that his cough has gotten better. No shortness of breath while at rest but moderate dyspnea with moderate exertion. He denies fevers or chills, however, Tmax was 100.0F overnight. No other complaints voiced at this time. Physical Exam Vital signs: Last Vital Signs Temp 100.0 F H 10/13/18 07:26 Pulse 75 10/13/18 07:26 Resp 17 10/13/18 07:26 BP 130/78 10/13/18 07:26 Pulse Ox 97 10/13/18 07:26 Intake & Output 10/11/18 10/12/18 10/13/18 10/14/18 06:59 06:59 06:59 06:59 Intake Total 150 / 150 730 / 730 250 / 250 Output Total 600 / 600 1500 / 1500 Balance 150 / 150 130 / 130 -1250 / -1250 Weight 97.2 kg Narrative: GENERAL: no acute distress, well-nourished, well-developed elderly male patient SKIN: Warm and dry. No rash. HEENT: Normocephalic. Atraumatic. Mucous membranes pink and moist. Hard of hearing. CARDIOVASCULAR: Regular rate and rhythm. RESPIRATORY: No accessory muscle use. Breath sounds diminished at bilateral bases. Breath sounds equal bilaterally. GASTROINTESTINAL: Abdomen soft, non-tender, nondistended. Normoactive bowel sounds x4. MUSCULOSKELETAL: No obvious deformities. Extremities without clubbing, cyanosis , or edema. NEUROLOGICAL: Awake and alert. No obvious cranial nerve deficits. Slowly moving all extremities with generalized weakness. Normal speech. PSYCHIATRIC: insight and judgment limited Results Labs CBC & Chem 7: 10/12/18 07:10 10/11/18 06:21 Labs: Microbiology 10/07/18 14:58 Blood - Line Aerobic Blood Culture - Final No growth in 5 days 10/07/18 14:58 Blood - Line Anaerobic Blood Culture - Final No growth in 5 days 10/07/18 14:50 Blood - Line Aerobic Blood Culture - Final No growth in 5 days 10/07/18 14:50 Blood - Line Anaerobic Blood Culture - Final No growth in 5 days Assessment and Plan Plan 78-year-old male with history of type 2 diabetes, dementia, CVA, DVT/PE, atrial fibrillation, presents to the ER following 3 weeks of ongoing fever associated with upper respiratory symptoms that include large amounts of green phlegm coughed up daily. Sepsis with Community-acquired pneumonia, failed outpatient: Acute, reported 3 weeks of fever, URI, cough with green sputum. On Cipro x3 days as outpatient with no improvement. -Meets sepsis with +leukocytosis, fever 100.9, tachypnea RR 22, lactic acid 2.9, suspect source-pneumonia -influenza negative -Sputum culture- normal respiratory mary -Urinary legionella/pneumococcal antigen negative -Blood cultures with NGTD -S/p IVF bolus, caution with fluid overload -duonebs prn -Continue antibiotics with IV Levaquin (day 6); added Zosyn on 10/11 (day 3) due to increase in WBCs and T99.6. Tmax 100.0F overnight. Consider that elevated WBCs might also be due to steroid. Generalized Weakness: suspect multifactorial with chronic deconditioning, dementia, in combination with acute infection -supportive treatment -encourage oral intake -consult PT, recommending rehab, patient reportedly from [facility] Diabetes Mellitus: chronic, stable -continue patient's metformin, holding glipizide for now with decreased oral intake -monitor Accu-checks, cover with SSI -hypoglycemia protocol Chronic pain -Medicate as indicated -E-forcse reviewed; patient has consistent prescription of narcotic pain medication. Hx of CVA: chronic -continue patient's aspirin and eliquis Hx of DVT/PE: chronic -continue patient's eliquis Atrial Fibrillation: chronic, rate controlled -EKG reviewed, shows afib with ventricular rate 77 -continue patient's eliquis, digoxin, diltiazem -monitor on telemetry Hypothyroidism: chronic -continue patient's levothyroxine Dementia: chronic -continue patient's namenda DVT Prophylaxis: on Eliquis Discharge Planning: Plan to discharge back to [facility] once clinically improved. Patient with fever overnight. Continue to monitor clinically. Code Status: DNR Discussed Condition With: RN, patient Progress Note: Quality VTE Deep Vein Thrombosis/Pulmonary Embolism Present on Admission: No
[2018-10-13] MEDS: Piperacil/Tazo 3.375 GM Premix 3.375 GM/50 ML PIGGYBACK IV.SIG SCH ×2 (11:25→22:00)
[2018-10-13] MEDS: Acetaminophen 325 MG Tablet PO PRN (21:48)
[2018-10-14] MEDS: oxyCODONE/Acetaminophen 10/325 Tablet PO PRN ×4 (02:47→21:34)
[2018-10-14] MEDS: Levothyroxine 50 MCG Tablet PO SCH (05:59)
[2018-10-14] MEDS: Acetaminophen 325 MG Tablet PO PRN ×2 (05:59→21:29)
[2018-10-14] MEDS: predniSONE 20 MG Tablet PO SCH (08:26)
[2018-10-14] MEDS: Venlafaxine XR 75 MG Capsule PO SCH (08:26)
[2018-10-14] MEDS: Pantoprazole Sodium 20 MG DR Tablet PO SCH (08:26)
[2018-10-14] MEDS: Furosemide 20 MG Tablet PO SCH (08:27)
[2018-10-14] MEDS: Digoxin 250 MCG Tablet PO SCH (08:27)
[2018-10-14] MEDS: dilTIAZem CD 180 MG Capsule PO SCH (08:27)
[2018-10-14] MEDS: Tiotropium Bromide 18 MCG/ACT Inhaler INH SCH (08:31)
[2018-10-14 09:11] LABS: Baso # (Auto) 0.1 th/mm3 (0.0-0.2); Baso % (Auto) 0.4 % (0.0-2.0); Eos # (Auto) 0.1 th/mm3 (0.0-0.4); Eos % (Auto) 0.3 % (0.0-4.0); Hematocrit 45.5 % (39.0-51.0); Hemoglobin 15.6 gm/dL (13.0-17.0); Lymph # (Auto) 5.3 th/mm3 (1.0-4.8); Lymph % (Auto) 29.2 % (9.0-44.0); Mean Corpuscular HGB Conc 34.2 % (32.0-36.0); Mean Corpuscular Hemoglobin 32.8 pg (27.0-34.0); Mean Platelet Volume 7.6 fL (7.0-11.0); Mono # (Auto) 1.1 th/mm3 (0.0-0.9); Mono % (Auto) 5.9 % (0.0-8.0); Neut # (Auto) 11.8 th/mm3 (1.8-7.7); Neut % (Auto) 64.2 % (16.0-70.0); Platelet Count 278 th/mm3 (150-450); Red Blood Count 4.74 mil/mm3 (4.50-5.90); Red Cell Distribution Width 13.9 % (11.6-17.2); White Blood Count 18.3 th/mm3 (4.0-11.0)
[2018-10-14 09:47] LABS: Carbon Dioxide 24.9 meq/L (21.0-32.0)
[2018-10-14 10:31] LABS: Lymphocytes 37 % (9-44); Metamyelocytes 1 % (0-1); Monocytes 2 % (0-8); Platelet Estimate Normal (Normal); Platelet Morphology Normal (Normal); Tallied Nucleated RBC 1 (0-0)
--- NOTE | 2018-10-14 10:52 | P.PNIM ---
Subjective Interval history: Follow up fever, leukocytosis, pneumonia, sepsis, generalized weakness Patient is resting in bed with his eyes closed. He opens them to verbal stimuli. He states he did not sleep well overnight. Denies chest pain or shortness of breath. Reports productive cough. No hot/cold/chills. No nausea or vomiting. Tolerating diet. Physical Exam Vital signs: Last Vital Signs Temp 99.6 F 10/14/18 07:50 Pulse 92 H 10/14/18 07:50 Resp 20 10/14/18 07:50 BP 121/60 10/14/18 07:50 Pulse Ox 96 10/14/18 07:50 Intake & Output 10/12/18 10/13/18 10/14/18 10/15/18 06:59 06:59 06:59 06:59 Intake Total 730 / 730 250 / 250 195 / 195 Output Total 600 / 600 1500 / 1500 1400 / 1400 Balance 130 / 130 -1250 / -1250 -1205 / -1205 Weight 97.2 kg 97.1 kg Narrative: GENERAL: no acute distress, well-nourished, well-developed elderly male patient SKIN: Warm and dry. No rash. HEENT: Normocephalic. Atraumatic. Mucous membranes pink and moist. Hard of hearing. CARDIOVASCULAR: Regular rate and rhythm. RESPIRATORY: No accessory muscle use. Breath sounds diminished at bilateral bases. Breath sounds equal bilaterally. GASTROINTESTINAL: Abdomen soft, non-tender, nondistended. Normoactive bowel sounds x4. MUSCULOSKELETAL: No obvious deformities. Extremities without clubbing, cyanosis , or edema. NEUROLOGICAL: Awake and alert. No obvious cranial nerve deficits. Slowly moving all extremities with generalized weakness. Normal speech. PSYCHIATRIC: insight and judgment limited Results Labs CBC & Chem 7: 10/14/18 06:39 10/14/18 06:39 Assessment and Plan Plan 78-year-old male with history of type 2 diabetes, dementia, CVA, DVT/PE, atrial fibrillation, presents to the ER following 3 weeks of ongoing fever associated with upper respiratory symptoms that include large amounts of green phlegm coughed up daily. Sepsis with Community-acquired pneumonia, failed outpatient: Acute, reported 3 weeks of fever, URI, cough with green sputum. On Cipro x3 days as outpatient with no improvement. -Met sepsis criteria on arrival with +leukocytosis, fever 100.9, tachypnea RR 22 , lactic acid 2.9, suspect source-pneumonia -influenza negative -Sputum culture- normal respiratory mary -Urinary legionella/pneumococcal antigen negative -Blood cultures with NGTD -duonebs prn -discontinued IV Levaquin (completed 7 days); added Zosyn on 10/11 (day 4) due to increase in WBCs and fever. Leukocytosis -may be 2/2 steroid use -Tmax 100F overnight -repeat CXR and UA to rule out infection Generalized Weakness: suspect multifactorial with chronic deconditioning, dementia, in combination with acute infection -supportive treatment -encourage oral intake -consult PT, recommending rehab, patient reportedly from [facility] Diabetes Mellitus: chronic, stable -continue patient's metformin, holding glipizide for now with decreased oral intake -monitor Accu-checks, cover with SSI -hypoglycemia protocol Chronic pain -Medicate as indicated -E-forcse reviewed; patient has consistent prescription of narcotic pain medication. Hx of CVA: chronic -continue patient's aspirin and eliquis Hx of DVT/PE: chronic -continue patient's eliquis Atrial Fibrillation: chronic, rate controlled -EKG reviewed, shows afib with ventricular rate 77 -continue patient's eliquis, digoxin, diltiazem -monitor on telemetry Hypothyroidism: chronic -continue patient's levothyroxine Dementia: chronic -continue patient's namenda DVT Prophylaxis: on Eliquis Discharge Planning: Plan to discharge back to [facility] once clinically improved. Patient with Tmax 100F overnight. Continue to monitor clinically. Code Status: DNR Discussed Condition With: RN, patient Progress Note: Quality VTE Deep Vein Thrombosis/Pulmonary Embolism Present on Admission: No
[2018-10-14] MEDS: Insulin NovoLOG Aspart Correctional Sugar Inj SQ SCH ×4 (10:54→21:49)
[2018-10-14] MEDS: Piperacil/Tazo 3.375 GM Premix 3.375 GM/50 ML PIGGYBACK IV.SIG SCH ×2 (12:54→22:13)
--- NOTE | 2018-10-14 13:28 | XR ---
EXAM DATE: 10/14/2018 1:01 PM EST AGE/SEX: 78 years / Male INDICATIONS: Fever and shortness of breath. CLINICAL DATA: This is the patient's subsequent encounter. Patient reports that signs and symptoms h ave been present for 3 days and indicates a pain score of 0/10. MEDICAL/SURGICAL HISTORY: Chronic obstructive pulmonary disease. Hypertension. Diabetes. Emir kocytosis. AFIB. None. COMPARISON: [facility], CHEST 1V SINGLE AP, 10/11/2018. . FINDINGS: Lungs are hypoaerated. There is no evidence of consolidating airspace disease or significant congesti on. Heart remains moderately enlarged. CONCLUSION: Hypoaerated lungs Stable chest without significant airspace disease or acute congestion. Electronically signed by: Branden Brambila MD Board Certified Radiologist 10/14/2018 1:27 PM EST
[2018-10-14 18:16] LABS: Bilirubin,Urine Negative (Negative); Clarity,Urine Clear (Clear); Color,Urine Yellow (Yellw/Straw); Glucose,Urine (UA) Negative (Negative); Leukocyte Esterase,Urine Negative (Negative); Nitrite,Urine Negative (Negative); Specific Gravity,Urine 1.015 (1.002-1.035); Squamous Epithelial Cell,Urine 1 /hpf (0-5)
[2018-10-15] MEDS: Levothyroxine 50 MCG Tablet PO SCH (06:24)
[2018-10-15] MEDS: Insulin NovoLOG Aspart Correctional Sugar Inj SQ SCH ×3 (09:41→17:44)
[2018-10-15] MEDS: dilTIAZem CD 180 MG Capsule PO SCH (09:42)
[2018-10-15] MEDS: Digoxin 250 MCG Tablet PO SCH (09:42)
[2018-10-15] MEDS: predniSONE 20 MG Tablet PO SCH (09:42)
[2018-10-15] MEDS: Venlafaxine XR 75 MG Capsule PO SCH (09:42)
[2018-10-15] MEDS: Furosemide 20 MG Tablet PO SCH (09:44)
[2018-10-15] MEDS: Pantoprazole Sodium 20 MG DR Tablet PO SCH (09:49)
[2018-10-15] MEDS: Tiotropium Bromide 18 MCG/ACT Inhaler INH SCH (10:17)
[2018-10-15 11:48] LABS: Baso # (Auto) 0.1 th/mm3 (0.0-0.2); Baso % (Auto) 0.4 % (0.0-2.0); Eos % (Auto) 0.3 % (0.0-4.0); Hematocrit 46.2 % (39.0-51.0); Hemoglobin 15.4 gm/dL (13.0-17.0); Lymph # (Auto) 5.5 th/mm3 (1.0-4.8); Lymph % (Auto) 30.4 % (9.0-44.0); Mean Corpuscular HGB Conc 33.3 % (32.0-36.0); Mean Corpuscular Hemoglobin 32.2 pg (27.0-34.0); Mean Corpuscular Volume 96.8 fL (80.0-100.0); Mean Platelet Volume 7.7 fL (7.0-11.0); Mono # (Auto) 0.8 th/mm3 (0.0-0.9); Mono % (Auto) 4.6 % (0.0-8.0); Neut # (Auto) 11.7 th/mm3 (1.8-7.7); Neut % (Auto) 64.3 % (16.0-70.0); Platelet Count 269 th/mm3 (150-450); Red Blood Count 4.77 mil/mm3 (4.50-5.90); Red Cell Distribution Width 14.3 % (11.6-17.2); White Blood Count 18.2 th/mm3 (4.0-11.0)
[2018-10-15] MEDS: Piperacil/Tazo 3.375 GM Premix 3.375 GM/50 ML PIGGYBACK IV.SIG SCH (11:55)
[2018-10-15 12:31] LABS: Lymphocytes 26 % (9-44); Monocytes 1 % (0-8)
[2018-10-15 12:32] LABS: Platelet Estimate Normal (Normal); Platelet Morphology Normal (Normal); RBC Morphology Normal (Normal)
--- NOTE | 2018-10-15 12:57 | P.DS ---
DS: Providers Date of admission: 10/09/18 10:26 Primary care physician: Cipriano Marte MD Consults: 10/11/18 15:02 HUB Only Consult Order Routine Consulting Provider: [facility] 10/12/18 10:05 HUB Only Consult Order Routine [facility] Anticipated date of discharge: 10/15/18 Brief History from admission: 78-year-old male with history of type 2 diabetes, dementia, CVA presents to the ER following 3 weeks of ongoing fever associated with upper respiratory symptoms that include large amounts of green phlegm coughed up daily. His has been trying to get him on an antibiotic at his [facility], he was finally placed on ciprofloxacin 3 days ago but his condition continues to get worse, he has become increasingly weak and has unreliable ambulation with high risk fall at this point. ER labs reveal elevated lactic acid level which places him at risk for sepsis. He has a history of pulmonary embolism with IVC filter placed, no history of atrial fibrillation 's report. She states that he has not had any urinary symptoms. She denies any chest pain or struggling with breathing. DS: Diagnosis Discharge Diagnosis (1) Community acquired pneumonia: Status: Acute Diagnosis: Principal (2) Sepsis: Status: Acute Diagnosis: Principal (3) Leukocytosis: Status: Acute Diagnosis: Principal (4) Diabetes mellitus: Status: Acute Diagnosis: Secondary (5) Atrial fibrillation: Status: Acute Diagnosis: Secondary (6) Generalized weakness: Status: Acute Diagnosis: Principal (7) Chronic pain: Status: Acute Diagnosis: Secondary (8) Dementia: Status: Acute Diagnosis: Secondary (9) History of pulmonary embolism: Status: Acute Diagnosis: Secondary DS: Summary Patient was started on IV Levaquin for suspected community acquired pneumonia. His leukocytosis got worse despite being on Levaquin and Zosyn was added. Patient received supplemental O2, duonebs and IV fluids. Influenza screening was negative, sputum culture showed normal respiratory mary, urine legionella and pneumococcal antigen were negative. Blood cultures showed no growth. Patient spiked a fever and repeat UA and CXR were obtained but showed no evidence of acute infection. Patient's fever resolved. Physical therapy evaluated patient and recommended rehab. Case management was consulted for assistance. On day of discharge patient was hemodynamically stable. Plan of care was discussed with patient's and he was discharged to [facility]. Time Spent with Patient Total time spent providing and/or coordinating discharge services: Greater than 30 minutes Status at Discharge Functional status at discharge: bed bound Overall status at discharge: patient is back to baseline Quality: VTE Deep Vein Thrombosis/Pulmonary Embolism Present on Admission: No Exam Narrative Exam Narrative: GENERAL: no acute distress, well developed, well nourished SKIN: warm and dry HEAD: Normocephalic, atraumatic EYES: No scleral icterus. No injection or drainage. NECK: Supple, trachea midline. No JVD or lymphadenopathy. CARDIOVASCULAR: Regular rate and rhythm without murmurs, gallops, or rubs. RESPIRATORY: Breath sounds equal bilaterally. No accessory muscle use. GASTROINTESTINAL: Abdomen soft, non-tender, nondistended. MUSCULOSKELETAL: No cyanosis, or edema. PSYCH: poor insight and judgement secondary to mental status Results Labs on day of discharge: Labs from last 24 hours 10/15/18 10/15/18 10/15/18 11:42 10:14 07:39 WBC 18.2 H RBC 4.77 Hgb 15.4 Hct 46.2 MCV 96.8 MCH 32.2 MCHC 33.3 RDW 14.3 Plt Count 269 MPV 7.7 Prelim Diff (Auto) Slide review pending Neut % (Auto) 64.3 Lymph % (Auto) 30.4 Grant % (Auto) 4.6 Eos % (Auto) 0.3 Baso % (Auto) 0.4 Neut # (Auto) 11.7 H Lymph # (Auto) 5.5 H Grant # (Auto) 0.8 Eos # (Auto) 0.0 Baso # (Auto) 0.1 WBC Differential Manual diff final Seg Neuts % (Manual) 71 H Band Neuts % (Manual) 1 Lymphocytes % (Manual) 26 Monocytes % (Manual) 1 Basophils % (Manual) 1 Abs Neuts (Manual) 13.1 H Differential Comment . Platelet Estimate Normal Platelet Morphology Normal RBC Morphology Normal POC Glucose 137 H 122 H Urine Color Urine Clarity Urine pH Ur Specific [place] Urine Protein Urine Glucose (UA) Urine Ketones Urine Occult Blood Urine Nitrate Urine Bilirubin Urine Urobilinogen Ur Leukocyte Esterase Urine RBC Urine WBC Ur Squamous Epith Cells Micro UA Comment Ur Microscopic Review Urine Culture Comments 10/14/18 10/14/18 10/14/18 21:37 17:12 16:53 WBC RBC Hgb Hct MCV MCH MCHC RDW Plt Count MPV Prelim Diff (Auto) Neut % (Auto) Lymph % (Auto) Grant % (Auto) Eos % (Auto) Baso % (Auto) Neut # (Auto) Lymph # (Auto) Grant # (Auto) Eos # (Auto) Baso # (Auto) WBC Differential Seg Neuts % (Manual) Band Neuts % (Manual) Lymphocytes % (Manual) Monocytes % (Manual) Basophils % (Manual) Abs Neuts (Manual) Differential Comment Platelet Estimate Platelet Morphology RBC Morphology POC Glucose 190 H 195 H Urine Color Yellow Urine Clarity Clear Urine pH 5.0 Ur Specific [place] 1.015 Urine Protein Negative Urine Glucose (UA) Negative Urine Ketones Negative Urine Occult Blood Negative Urine Nitrate Negative Urine Bilirubin Negative Urine Urobilinogen Less than 2 Ur Leukocyte Esterase Negative Urine RBC Less than 1 Urine WBC 1 Ur Squamous Epith Cells 1 Micro UA Comment Culture not ind Ur Microscopic Review Not Reportable Urine Culture Comments Culture not ind 10/14/18 12:53 WBC RBC Hgb Hct MCV MCH MCHC RDW Plt Count MPV Prelim Diff (Auto) Neut % (Auto) Lymph % (Auto) Grant % (Auto) Eos % (Auto) Baso % (Auto) Neut # (Auto) Lymph # (Auto) Grant # (Auto) Eos # (Auto) Baso # (Auto) WBC Differential Seg Neuts % (Manual) Band Neuts % (Manual) Lymphocytes % (Manual) Monocytes % (Manual) Basophils % (Manual) Abs Neuts (Manual) Differential Comment Platelet Estimate Platelet Morphology RBC Morphology POC Glucose 219 H Urine Color Urine Clarity Urine pH Ur Specific [place] Urine Protein Urine Glucose (UA) Urine Ketones Urine Occult Blood Urine Nitrate Urine Bilirubin Urine Urobilinogen Ur Leukocyte Esterase Urine RBC Urine WBC Ur Squamous Epith Cells Micro UA Comment Ur Microscopic Review Urine Culture Comments Impressions ITS Impressions Chest X-Ray 10/14/18 00:00 CONCLUSION: Hypoaerated lungs Stable chest without significant airspace disease or acute congestion. Discharge Plan Discharge Disposition Patient Disposition: 03 Discharge to SNF Discharge Condition Condition: Fair Discharge Order Discharge Orders: Discharge Order (Routine); Ordered 10/15/18 Ordered By: Joaquim Munguia Discharge Details Anticipated Discharge Date: 10/10/18 Physicians Team ED Provider: Danny Grey Primary Care Provider: Cipriano Marte Attending Provider: Thony Hernandez Other Providers: [facility] Rxs /Orders / Referrals /Forms Prescriptions: Continue metformin 500 mg Tablet 500 mg PO BID RF: 0 venlafaxine 75 mg Tablet 75 mg PO BID RF: 0 ipratropium-albuterol 0.5 mg-3 mg(2.5 mg base)/3 mL Solution For Nebulization 3 ml INHALATION Q6-8H PRN (Reason: Wheezing) RF: 0 ondansetron HCl [Zofran] 4 mg Tablet 4 mg PO TID-QID PRN (Reason: Nausea) RF: 0 glipizide 10 mg Tablet 10 mg PO BID RF: 0 prednisone 20 mg Tablet 20 mg PO DAILY RF: 0 digoxin 250 mcg Tablet 250 mcg PO DAILY RF: 0 aspirin [Aspir-81] 81 mg Tablet,Delayed Release (Dr/Ec) 81 mg PO DAILY RF: 0 pravastatin 10 mg Tablet 10 mg PO DAILY RF: 0 levothyroxine 50 mcg Tablet 50 mcg PO DAILY RF: 0 omeprazole 20 mg Capsule,Delayed Release(Dr/Ec) 20 mg PO DAILY RF: 0 folic acid 1 mg Tablet 1 mg PO DAILY RF: 0 furosemide 20 mg Tablet 20 mg PO DAILY RF: 0 insulin lispro [Humalog U-100 Insulin] 100 unit/mL Solution 1 sliding scale dose SUBCUT UD RF: 0 diltiazem HCl 180 mg Capsule,Ext.Rel 24h Degradable 180 mg PO DAILY RF: 0 memantine 10 mg Tablet 10 mg PO BID RF: 0 tiotropium bromide 18 mcg Capsule, W/Inhalation Device 1 cap INHALATION DAILY RF: 0 rivastigmine 4.6 mg/24 hr Patch 24 Hour 4.6 mg TRANSDERMAL DAILY RF: 0 apixaban [Eliquis] 5 mg Tablet 5 mg PO BID RF: 0 Discontinued pravastatin 10 mg Tablet 10 mg PO DAILY RF: 0 Referrals: Cipriano Marte MD [Primary Care Provider] - See Instructions (Follow up within 2- 3 days) Discharge Instructions Additional Instructions: Discharge Care Plan Goals for Pneumonia You have been diagnosed with pneumonia. This is a serious lung infection. Most cases of pneumonia are caused by bacteria. Pneumonia most often occurs in older adults, young children, and people with chronic health problems. Directions to Meet your Goals: 1. Home care: * Take your medicine exactly as directed. Dont skip doses. Continue taking your antibiotics as until they are all gone, even if you start to feel better. This will prevent the pneumonia from coming back. * Drink at least 8 glasses of water daily, unless directed otherwise. This helps to loosen and thin secretions so that you can cough them up. * Use a cool-mist humidifier in your bedroom. Be sure to clean the humidifier daily. * Dont use medicines to suppress your cough unless your cough is dry, painful, or interferes with your sleep. Coughing up mucus is normal. You may use an expectorant if your doctor says its okay. * You can use warm compresses or a heating pad on the lowest setting to relieve chest discomfort. Use several times a day for 15-20 minutes at a time. To prevent injury to your skin, set the temperature to warm, not hot. Dont put the compress or pad directly on your skin. Make certain it has a cover or wrap it in a towel. This is to prevent skin soriano. * Get plenty of rest until your fever, shortness of breath, and chest pain go away. * Plan to get a flu shot every year. The flu is a common cause of pneumonia. Getting a flu shot every year can help prevent both the flu and pneumonia. 2. Getting the pneumococcal vaccine: * Talk with your doctor about getting the pneumococcal vaccine. Pneumococcal pneumonia is caused by bacteria that spread from person to person. It can cause minor problems, such as ear infections. But it can also turn into life- threatening illnesses of the lungs (pneumonia), the covering of the brain and spinal cord (meningitis), and the blood (bacteremia). * Make sure to ask your doctor if you should have the vaccine. Children under 2 years of age, adults over age 65, people with certain health conditions, and smokers are at the highest risk of pneumococcal disease. This vaccine can help prevent pneumococcal disease in both adults and children. 3. Follow-up care: Do Not miss your follow-up appointment. Keep up with all your appointments and yearly check ups 4. When to call your doctor: Call your doctor immediately if you have any of the following: Fever of 100.4F (38C) or higher, or as directed by your healthcare provider Mucus from the lungs (sputum) thats yellow, green, bloody, or smells bad Vomiting Any symptoms that get worse 5. Call 911: Call 911 right away if you have any of the following: Chest pain Trouble breathing Blue lips or fingernails Post Discharge Care Plan Care Plan Goals: Discharge Care Plan Goals for Pneumonia You have been diagnosed with pneumonia. This is a serious lung infection. Most cases of pneumonia are caused by bacteria. Pneumonia most often occurs in older adults, young children, and people with chronic health problems. Directions to Meet your Goals: 1. Home care: * Take your medicine exactly as directed. Dont skip doses. Continue taking your antibiotics as until they are all gone, even if you start to feel better. This will prevent the pneumonia from coming back. * Drink at least 8 glasses of water daily, unless directed otherwise. This helps to loosen and thin secretions so that you can cough them up. * Use a cool-mist humidifier in your bedroom. Be sure to clean the humidifier daily. * Dont use medicines to suppress your cough unless your cough is dry, painful, or interferes with your sleep. Coughing up mucus is normal. You may use an expectorant if your doctor says its okay. * You can use warm compresses or a heating pad on the lowest setting to relieve chest discomfort. Use several times a day for 15-20 minutes at a time. To prevent injury to your skin, set the temperature to warm, not hot. Dont put the compress or pad directly on your skin. Make certain it has a cover or wrap it in a towel. This is to prevent skin soriano. * Get plenty of rest until your fever, shortness of breath, and chest pain go away. * Plan to get a flu shot every year. The flu is a common cause of pneumonia. Getting a flu shot every year can help prevent both the flu and pneumonia. 2. Getting the pneumococcal vaccine: * Talk with your doctor about getting the pneumococcal vaccine. Pneumococcal pneumonia is caused by bacteria that spread from person to person. It can cause minor problems, such as ear infections. But it can also turn into life- threatening illnesses of the lungs (pneumonia), the covering of the brain and spinal cord (meningitis), and the blood (bacteremia). * Make sure to ask your doctor if you should have the vaccine. Children under 2 years of age, adults over age 65, people with certain health conditions, and smokers are at the highest risk of pneumococcal disease. This vaccine can help prevent pneumococcal disease in both adults and children. 3. Follow-up care: Do Not miss your follow-up appointment. Keep up with all your appointments and yearly check ups 4. When to call your doctor: Call your doctor immediately if you have any of the following: Fever of 100.4F (38C) or higher, or as directed by your healthcare provider Mucus from the lungs (sputum) thats yellow, green, bloody, or smells bad Vomiting Any symptoms that get worse 5. Call 911: Call 911 right away if you have any of the following: Chest pain Trouble breathing Blue lips or fingernails Status ED Status: Left Department
[2018-10-15] MEDS: oxyCODONE/Acetaminophen 10/325 Tablet PO PRN (17:45)
== END 2018-10-15 19:35 | DRG 871 ==
LOC: NEDA 14:18 → NEPC 14:18 → NEPHCDU 17:01 → NEDA 17:09 → NEPHCDU 17:48 → N05 10-12 10:28
PROVIDERS: ADMIT Internal Medicine; ATTEND Internal Medicine
DX: Z86.73 Personal history of transient ischemic attack (TIA), and cerebral infarction without residual deficits; I48.2 Chronic atrial fibrillation; Z88.5 Allergy status to narcotic agent; A41.9 Sepsis, unspecified organism; F03.90 Unspecified dementia, unspecified severity, without behavioral disturbance, psychotic disturbance, mood disturbance, and anxiety; E03.9 Hypothyroidism, unspecified; Z86.711 Personal history of pulmonary embolism; Z74.01 Bed confinement status; Z82.49 Family history of ischemic heart disease and other diseases of the circulatory system; E11.9 Type 2 diabetes mellitus without complications; J18.9 Pneumonia, unspecified organism; Z86.718 Personal history of other venous thrombosis and embolism; J44.0 Chronic obstructive pulmonary disease with (acute) lower respiratory infection; J06.9 Acute upper respiratory infection, unspecified; Z79.01 Long term (current) use of anticoagulants; Z79.84 Long term (current) use of oral hypoglycemic drugs; H91.90 Unspecified hearing loss, unspecified ear; Z66 Do not resuscitate; I50.9 Heart failure, unspecified
CPT/HCPCS: 71010; 71045; 80048; 80053; 81001; 82948; 82962; 83520; 83605; 83735; 83880; 84484; 85025; 87040; 87070; 87205; 87275; 87276; 87449; 87804; 90761; 93005; 94640; 94665; 96361; 96365; 96366; 96372; 97110; 97116; 97162; 97530; 99285; G0378; G8987; G8988; J1815; J1956; J2405; J2543; J7030; J7506; J7512